=== PATIENT | male | born 1955 | race Caucasian/White ===

== ENCOUNTER 2017-05-04 11:00 | Outpatient (RCR) | payer MEDICAID, SELFPAY ==
--- NOTE | 2017-03-31 14:14 | HP.PTEVAL_ITS ---
Patient's Visit Information LATOSHA FOLEY is a 62 year old M referred to Physical Therapy by Tejas WAGNER with a diagnosis of BACK AND LEG PAIN. Date of Evaluation: 03/31/17 Physical Therapist: Chester Adams PT, - Visit Plan Frequency: 2x /Week Duration: 4 Weeks Plan: lumbar flexion,DLS,modalities - Subjective Subjective: This 62 y/o male presents to physical therapy with back and leg for many years. Patient has been seeing pain management with one injections .Symptoms worse with standing 30 sec or walk 10feet,unable to do stairs. Symproms bettedr with leaning on cart when shopping and sitting resting. Patient has alot parathesia/tingling in legs. Patient had MRI showed multiple level foraminal/spinal mod to severe stenosis.Coughing/sneezing -.Bowel/bladder good. Pain affects sleeping. Patient has no tauma. Patient was stone.Patient has seen chiropractor.Patient noticed in past weakness in ankle. SOCAIL: retired. SOCIAL: single - Pain Bilateral Lower Extremity Pain Intensity (Out of 10): 9 Pain Intensity Range: 10 Comment: walking Bilateral Back Pain Intensity (Out of 10): 3 Pain Intensity Range: 10 - Objective POSTURE: mild foward posture ,reduce lordisis. GAIT: mild foward posture unsteady with antalgic gait with pain. NEURO:C/O parathesia/tingling,light touch inact,reflexes 1/3 L3-4,L4-5,L5-S1. FLEXAILITY: hams mod loss. SYMMTRIES : align. MMT: quads 4-/5,hams 4-/5,hip flexion 3+/5,DF 3/5 right,left 3+/5. LUMBAR ROM:flexion min loss,extension sever loss with pain,side glides mod loss pain - Special Tests L/S Slump test left side: Negative L/S Slump test right side: Negative L/S Left Straight Leg Raise: Negative L/S Right Straight Leg Raise: Negative Lumbar Standing: Flexion - Mechanical Response: No effect Lumbar Standing: Flexion - Symptoms During Testing: No effect Lumbar Standing: Flexion - Symptoms After Testing: No effect Lumbar Standing: Extension - Mechanical Response: No effect Lumbar Standing: Extension - Symptoms During Testing: Increases Lumbar Standing: Extension - Symptoms After Testing: No worse Lumbar Standing: Right Side Glides - Mechanical Response: No effect Lumbar Standing: Right Side [place] - Symptoms During Testing: Increases Lumbar Standing: Right Side [place] - Symptoms After Testing: No worse Lumbar Standing: Left Side [place] - Mechanical Response: No effect Lumbar Standing: Left Side [place] - Symptoms During Testing: Increases Lumbar Standing: Left Side [place] - Symptoms After Testing: No worse Lumbar Lying: Flexion - Mechanical Response: No effect Lumbar Lying: Flexion - Symptoms During Testing: Decreases Lumbar Lying: Flexion - Symptoms After Testing: Better Comments:: unloaded - Goals Goal 1:: Independant with HEP Goal Time Frame: 2-4 Weeks Goal 2:: Independant with posture for ADL'S Goal Time Frame: 2-4 Weeks Goal 3:: Decrease lumbar and leg pain by 40% or greater to improve function Goal Time Frame: 2-4 Weeks Goal 4:: Patient to to increase BLE strength by 1/2 grade to improve walking and standing 5min Goal Time Frame: 4-6 Weeks Goal 5:: Patient be able to satnd or walk 5min to improve ADL'S and housework tasks Goal Time Frame: 2-4 Weeks - Rehabilitation Potential Physical Therapy Diagnosis: This patient has severe/mod lumbar stenosis / foraminal which afects any walking or standing. better with sitting thus benifit from skilled PT Rehabilitation Potential: Good - Anticipated Interventions Patient/Client Instruction: Educate patient on: Condition, Plan of Care For the Purpose of:: To decrease pain, To increase ROM, To improve muscle performance and motor function, To increase tolerance to activity/condition/ position, To improve ability of physical actions for home/community/work/leisure , To improve gait and locomotor functions, To increase flexibility/ROM, To improve safety with gait, To assume or resume ADL's, To improve ability to perform tasks related to life management Therapeutic Exercise to Include: Strength training, Body mechanics, Postural training, Flexibilty training, Dynamic Lumbar Stabilization Comment: LUMBAR FLEXION For the Purpose of:: To decrease pain, To improve muscle performance and motor function, To improve ability to perform ADL's, To increase tolerance to activity /condition/position, To improve ability of physical actions for home/community/ work/leisure, To improve health of tissue, To decrease soft tissue restriction, To improve endurance, To improve safety with gait, To improve ability to perform tasks related to life management TENS: Yes IF ES: Yes Cryotherapy (ice pack, ice massage): Yes Thermo therapy (hot pack): Yes Ultrasound (thermal/non thermal): Yes For the Purpose of:: To decrease pain, To increase ROM, To improve nutrient delivery to tissue, To increase oxygenation perfusion, To improve health of tissue, To decrease soft tissue restriction Thank you for the opportunity to evaluate your patient. For Medicare and Medicare HMO plans, please review the plan of care and approve it. It will need to be FAXED BACK to us at [phone] for Medicare purposes. Please let me know if there are questions or concerns regarding this plan of care. Physician Signature: Date:
--- NOTE | 2017-05-04 14:52 | HP.PTDCSUM_ITS ---
HP - PT D/C Summary It has been my pleasure to treat LATOSHA FOLEY under orders from DR.ABASAL Sandra for the diagnosis of BACK AND LEG PAIN for a total of 8 visit(s). Discharge Date: 05/04/17 Please see the following information for a summary of their discharge status. - Subjective Subjective: Doing the same ..unable to walk 100 yards or stand for couple of minutes pain and weakness. Patient reprts falling this weekend. Plan to see DR CUEVAS next month. 8/10 pain with walking - Pain Bilateral Lower Extremity Pain Intensity (Out of 10): 7 Bilateral Back Pain Intensity (Out of 10): 8 - Overall Improvement % Improvement: 10 - Objective Objective/Function: POSTURE: decrease lordosis lumbat. GAIT: unsteady gait due to weakness in legs. NEURO: reflexes 1/3 ,achilles and patella. MMT: quads 4-/ 5,hip flexion R 3/5,left 3+/5. hams 4-5,ankle R 3/5 ,L 3+/5 - Goals Goal 1:: Independant with HEP Goal Progress: Progressing Goal 2:: Independant with posture for ADL'S Goal Progress: Progressing Goal 3:: Decrease lumbar and leg pain by 40% or greater to improve function Goal Progress: Not Progressing Goal 4:: Patient to to increase BLE strength by 1/2 grade to improve walking and standing 5min Goal Progress: Not Progressing Goal 5:: Patient be able to satnd or walk 5min to improve ADL'S and housework tasks Goal Progress: Not Progressing - Plan Plan: D/C RECOMMEND LUMABR SPECIALIST CONSULT - D/C Information Discharge Comments: D/C TO PAIN MANAGEMENT If there are questions or concerns regarding this patient's physical therapy, please feel free to call me at [phone]. Thank you for the referral of this patient. Sincerely, Chester Adams, PT,
== END 2017-05-04 19:00 | disposition home or self-care (01) ==
LOC: PT 11:00
PROVIDERS: Family Provider Family Medicine; PCP Family Medicine; Visit Provider Anesthesiology Pain Medicine
DX: M54.9 Dorsalgia, unspecified (principal); M79.606 Pain in leg, unspecified
CPT/HCPCS: 97014; 97035; 97110; 97162; G0283

== ENCOUNTER → 2017-11-23 09:41 | Outpatient (CLI) | payer MEDICAID, SELFPAY ==
[2017-11-23 12:32] LABS: Absolute Lymphocyte Count 1.75 X10^3/ul (0.83-4.51); Basophil# 0.09 X10^3/uL; Basophil% 0.8 % (0-1); Eosinophil# 0.42 X10^3/uL; Eosinophils% 3.9 % (0-5); Hematocrit 46.1 % (40-54); Hemoglobin 15.7 g/dl (13.0-16.5); Lymphocyte # 1.75 X10^3/ul (4.0); Lymphocyte % 16.3 % (19-41); Mean Corp Hgb Conc 34.1 g/gl (32-36); Mean Corpuscular Hgb 30.7 pg (27.0-32.0); Mean Platelet Vol. 11.8 fl (6.2-12.0); Monocyte# 1.36 X10^3/uL; Monocyte% 12.7 % (0-10); Neutrophil # 7.02 X10^3/uL (2.7-7.7); Neutrophil % 65.6 % (47-70); Platelet Count 349 K/mm3 (150-450); RBC Distribution Width SD 42.5 fl (35.1-43.9); Red Blood Count 5.12 M/mm3 (4.6-6.2); White Blood Count 10.7 K/mm3 (4.4-11.0)
[2017-11-23 12:42] LABS: ALB/GLOB Ratio 1.1 RATIO (0.9-2.4); AST(SGOT) 31 U/L (15-37); Alanine Aminotransfer ALT/SGPT 63 U/L (16-61); Albumin, Serum 4.2 g/dL (3.2-5.0); Alkaline Phosphatase 95 U/L (45-117); Anion Gap 14 (5-15); BUN 21 mg/dL (7-18); BUN/Creat Ratio 20.6 RATIO (10-20); Calcium,Total 9.3 mg/dL (8.5-10.1); Chloride 99 mmol/L (98-107); Cholesterol 207 mg/dL (200); Creatinine, Serum 1.02 mg/dL (0.70-1.30); EST Glomerular Filtration Rate 79 mL/min (>60); Est Glom Filt Rate - Afr Amer 95 mL/min (>60); Globulin 3.9 g/dL (2.2-4.2); Glucose 130 mg/dL (74-106); High Density Lipoprotein 55 mg/dL; Potassium 3.6 mmol/L (3.5-5.1); Protein, Total 8.1 g/dL (6.4-8.2); Sodium Level 140 mmol/L (136-145); Triglycerides 212 mg/dL; Very Low Density Lipoprotein 42 mg/dL (5-40)
[2017-11-23 12:52] LABS: Hemoglobin A1c 6.2 % (4.2-6.3); POSITIVE COUNT NO; POSITIVE DIFFERENTIAL NO; POSITIVE MORPHOLOGY NO
[2017-11-23 12:55] LABS: Microalbumin,Random Urine 24.5 mg/L (NO RANGE EST.); Microalbumin:Creatinine Ratio 11.8 mg/g CRE (<30 mg/g CRE)
[2017-11-26 12:09] LABS: Testosterone, Free 14.45 ng/dL (5.00-21.00)
[2017-11-27 08:49] LABS: Testosterone, % Free 2.42 % (1.50-4.20); Testosterone, Total 597 ng/dL (264-916)
== END ==
PROVIDERS: Family Provider Family Medicine; PCP Family Medicine; Visit Provider Family Medicine
DX: E11.9 Type 2 diabetes mellitus without complications (principal); I10 Essential (primary) hypertension; R53.83 Other fatigue
CPT/HCPCS: 36415; 80053; 80061; 82043; 82570; 83036; 84402; 84403; 85025

== ENCOUNTER → 2018-06-11 08:19 | Outpatient (CLI) | payer MEDICAID, SELFPAY ==
[2018-06-11 12:45] LABS: Cholesterol 206 mg/dL (200); Hemoglobin A1c 6.5 % (4.2-6.3); High Density Lipoprotein 42 mg/dL; Triglycerides 281 mg/dL; Very Low Density Lipoprotein 56 mg/dL (5-40)
== END ==
PROVIDERS: Family Provider Family Medicine; PCP Family Medicine; Visit Provider Family Medicine
DX: E11.9 Type 2 diabetes mellitus without complications (principal); I10 Essential (primary) hypertension
CPT/HCPCS: 36415; 80061; 83036

== ENCOUNTER → 2018-12-22 08:21 | Outpatient (CLI) | payer MEDICAID, SELFPAY ==
[2018-12-04 10:26] VITALS: BMI 28.7
[2018-12-22 12:33] LABS: Absolute Lymphocyte Count 2.03 X10^3/uL (0.83-4.51); Absolute Neutrophil Count 6.1 X10^3/uL (2.0-7.7); Basophil# 0.07 X10^3/uL; Basophil% 0.7 % (0-1); Eosinophil# 0.33 X10^3/uL; Eosinophils% 3.5 % (0-5); Hematocrit 48.1 % (40-54); Hemoglobin 15.7 g/dL (13.0-16.5); Lymphocyte # 2.03 X10^3/ul (4.0); Lymphocyte % 21.3 % (19-41); Mean Corp Hgb Conc 32.6 g/dL (32-36); Mean Corpuscular Hgb 30.1 pg (27.0-32.0); Mean Corpuscular Volume 92.3 fL (80-94); Mean Platelet Vol. 11.3 fl (6.2-12.0); Monocyte# 0.96 X10^3/uL; Monocyte% 10.1 % (0-10); NRBC Flagged by Analyzer 0 % (0-5); Neutrophil # 6.08 X10^3/uL (2.7-7.7); Neutrophil % 63.9 % (47-70); Platelet Count 352 K/mm3 (150-450); RBC Distribution Width CV 12.5 % (11.6-14.6); RBC Distribution Width SD 42.8 fl (35.1-43.9); Red Blood Count 5.21 M/mm3 (4.6-6.2); White Blood Count 9.5 K/mm3 (4.4-11.0)
[2018-12-22 12:49] LABS: Microalbumin,Random Urine 51.4 mg/L (NO RANGE EST.); Microalbumin:Creatinine Ratio 22.4 mg/g CRE (<30 mg/g CRE)
[2018-12-22 12:56] LABS: ALB/GLOB Ratio 1.1 RATIO (0.9-2.4); AST(SGOT) 24 U/L (15-37); Alanine Aminotransfer ALT/SGPT 50 U/L (16-61); Alkaline Phosphatase 134 U/L (45-117); Anion Gap 5 (5-15); BUN 13 mg/dL (7-18); Calcium,Total 9.3 mg/dL (8.5-10.1); Chloride 100 mmol/L (98-107); Cholesterol 188 mg/dL (200); Creatinine, Serum 1.08 mg/dL (0.70-1.30); EST Glomerular Filtration Rate 73 mL/min (>60); Est Glom Filt Rate - Afr Amer 89 mL/min (>60); Globulin 3.7 g/dL (2.2-4.2); Glucose 96 mg/dL (74-106); High Density Lipoprotein 40 mg/dL; Potassium 3.7 mmol/L (3.5-5.1); Protein, Total 7.7 g/dL (6.4-8.2); Sodium Level 136 mmol/L (136-145); Triglycerides 208 mg/dL; Very Low Density Lipoprotein 42 mg/dL (5-40)
[2018-12-22 12:59] LABS: Hemoglobin A1c 6.6 % (4.2-6.3)
== END ==
PROVIDERS: Family Provider Family Medicine; PCP Family Medicine; Visit Provider Family Medicine
DX: E11.9 Type 2 diabetes mellitus without complications (principal); I10 Essential (primary) hypertension; E78.1 Pure hyperglyceridemia
CPT/HCPCS: 36415; 80053; 80061; 82043; 82570; 83036; 85025

== ENCOUNTER → 2019-01-31 08:06 | Outpatient (CLI) | payer MEDICAID, SELFPAY ==
[2018-12-04 10:26] VITALS: BMI 28.7
[2019-01-25 10:30] VITALS: BMI 28.7
--- NOTE | 2019-01-31 08:30 | RAD_ITS ---
STUDY: X-RAY - ESOPHAGUS (BARIUM SWALLOW) WITH FLUOROSCOPY REASON FOR EXAM: Male, 63 years old. Dysphagia. TECHNIQUE: 12 view(s) of the esophagus were obtained following swallowing of barium. FLUOROSCOPY TIME (if supplied): (0:39) minutes/seconds COMPARISON: None. FINDINGS: There is no demonstrated esophageal foreign body. There is no demonstrated stricture or mucosal abnormality. Normal gastroesophageal junction, without a demonstrated hiatal hernia. The patient ingested a 12 mm tablet of barium without any difficulty. Normal visualized aortic arch and descending thoracic aorta. Normal visualized pulmonary parenchyma. Normal visualized osseous structures of the thorax. RAD/Esophagus Only IMPRESSION: Normal plain film x-ray examination (barium swallow) of the esophagus. Electronically Signed: Soy Esquivel, at 9:14 EST , Service support ,
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
== END ==
PROVIDERS: Family Provider Family Medicine; PCP Family Medicine; Referring Provider Otolaryngology; Visit Provider Otolaryngology
DX: R13.10 Dysphagia, unspecified (principal)
CPT/HCPCS: 73130; 74220

== ENCOUNTER → 2019-08-03 08:21 | Outpatient (CLI) | payer MEDICAID, SELFPAY ==
[2019-01-25 10:30] VITALS: BMI 28.7
[2019-08-03 12:33] LABS: Absolute Lymphocyte Count 2.13 X10^3/uL (0.83-4.51); Absolute Neutrophil Count 3.7 X10^3/uL (2.0-7.7); Basophil# 0.06 X10^3/uL; Basophil% 0.8 % (0-1); Eosinophil# 0.39 X10^3/uL; Eosinophils% 5.4 % (0-5); Hematocrit 44.9 % (40-54); Hemoglobin 14.9 g/dL (13.0-16.5); Lymphocyte # 2.13 X10^3/ul (4.0); Lymphocyte % 29.7 % (19-41); Mean Corp Hgb Conc 33.2 g/dL (32-36); Mean Corpuscular Hgb 30.5 pg (27.0-32.0); Mean Platelet Vol. 11.8 fl (6.2-12.0); Monocyte# 0.87 X10^3/uL; Monocyte% 12.1 % (0-10); NRBC Flagged by Analyzer 0 % (0-5); Neutrophil # 3.69 X10^3/uL (2.7-7.7); Neutrophil % 51.6 % (47-70); Platelet Count 358 K/mm3 (150-450); RBC Distribution Width CV 12.4 % (11.6-14.6); RBC Distribution Width SD 41.9 fl (35.1-43.9); Red Blood Count 4.88 M/mm3 (4.6-6.2); White Blood Count 7.2 K/mm3 (4.4-11.0)
[2019-08-03 12:47] LABS: AST(SGOT) 42 U/L (15-37); Alanine Aminotransfer ALT/SGPT 57 U/L (16-61); Albumin, Serum 3.6 g/dL (3.2-5.0); Alkaline Phosphatase 94 U/L (45-117); Anion Gap 7 (5-15); BUN 21 mg/dL (7-18); BUN/Creat Ratio 18.9 RATIO (10-20); Calcium,Total 9.2 mg/dL (8.5-10.1); Chloride 103 mmol/L (98-107); Cholesterol 173 mg/dL (200); Creatinine, Serum 1.11 mg/dL (0.70-1.30); EST Glomerular Filtration Rate 71 mL/min (>60); Est Glom Filt Rate - Afr Amer 86 mL/min (>60); Globulin 3.5 g/dL (2.2-4.2); Glucose 92 mg/dL (74-106); High Density Lipoprotein 40 mg/dL; Potassium 3.5 mmol/L (3.5-5.1); Protein, Total 7.1 g/dL (6.4-8.2); Sodium Level 139 mmol/L (136-145); Triglycerides 144 mg/dL; Very Low Density Lipoprotein 29 mg/dL (5-40)
[2019-08-03 12:54] LABS: Hemoglobin A1c 6.4 % (3.8-5.6)
== END ==
PROVIDERS: PCP Family Medicine; Visit Provider Family Medicine
DX: E11.9 Type 2 diabetes mellitus without complications (principal); I10 Essential (primary) hypertension; E78.1 Pure hyperglyceridemia; R53.83 Other fatigue
CPT/HCPCS: 36415; 80053; 80061; 83036; 85025

== ENCOUNTER → 2020-01-05 09:30 | Outpatient (CLI) | payer MEDICAID, SELFPAY ==
[2019-01-25 10:30] VITALS: BMI 28.7
[2019-09-20 10:18] VITALS: BMI 28.7
[2020-01-05 12:38] LABS: Hemoglobin A1c 6.4 % (3.8-5.6)
[2020-01-05 12:49] LABS: Cholesterol 181 mg/dL (200); High Density Lipoprotein 48 mg/dL; Triglycerides 182 mg/dL; Very Low Density Lipoprotein 36 mg/dL (5-40)
== END ==
PROVIDERS: PCP Family Medicine; Visit Provider Family Medicine
DX: E11.9 Type 2 diabetes mellitus without complications (principal); I10 Essential (primary) hypertension; E78.1 Pure hyperglyceridemia
CPT/HCPCS: 36415; 80061; 83036

== ENCOUNTER → 2020-08-02 10:54 | Outpatient (CLI) | payer MEDICARE, MEDICAID, SELFPAY ==
[2020-08-02 10:06] LABS: Absolute Lymphocyte Count 2.15 X10^3/uL (0.83-4.51); Basophil# 0.09 X10^3/uL; Basophil% 0.8 % (0-1); Eosinophil# 0.29 X10^3/uL; Eosinophils% 2.7 % (0-5); Hematocrit 47.2 % (40-54); Hemoglobin 15.7 g/dL (13.0-16.5); Lymphocyte # 2.15 X10^3/ul (0.83-4.51); Mean Corp Hgb Conc 33.3 g/dL (32-36); Mean Corpuscular Hgb 30.4 pg (27.0-32.0); Mean Corpuscular Volume 91.3 fL (80-94); Mean Platelet Vol. 11.2 fl (6.2-12.0); Monocyte# 1.12 X10^3/uL; Monocyte% 10.4 % (0-10); NRBC Flagged by Analyzer 0 % (0-5); Neutrophil # 7.02 X10^3/uL (2.7-7.7); Neutrophil % 65.4 % (47-70); Platelet Count 368 K/mm3 (150-450); RBC Distribution Width CV 12.9 % (11.6-14.6); RBC Distribution Width SD 43.6 fl (35.1-43.9); Red Blood Count 5.17 M/mm3 (4.6-6.2); White Blood Count 10.7 K/mm3 (4.4-11.0)
[2020-08-02 10:38] LABS: Cholesterol 198 mg/dL (200); High Density Lipoprotein 49 mg/dL; Triglycerides 198 mg/dL; Very Low Density Lipoprotein 40 mg/dL (5-40)
[2020-08-02 10:41] LABS: Vitamin B12 519 pg/mL (211-911)
[2020-08-02 10:54] LABS: Hemoglobin A1c 6.7 % (3.8-5.6)
--- NOTE | 2020-08-02 10:59 | ART_ITS ---
Reason For Study: PVD Procedure A bilateral lower extremity continuous wave Doppler with analog waveform analysis,segmental pressures,and ankle brachial indexes without exercise. Left Segmental Pressures Left brachial= 161mmHg. Left dorsalis pedis artery = 207mmHg. Left digit = 177 mmHg. The left dorsalis pedis waveforms are triphasic. The left posterior tibial artery waveforms are triphasic. [employer] is noncompressible. Right Segmental Pressures Right brachial= 153mmHg. Right posterior tibial artery = 210mmHg. Right dorsalis pedis artery = 188mmHg. Right digit = 123 mmHg. The right dorsalis pedis waveforms are triphasic. The right posterior tibial artery waveforms are triphasic. Indices The right ankle brachial index by the dorsalis pedis is 1.17. The right ankle brachial index by the posterior tibial artery is 1.3. The right digital-brachial index is .76. The left ankle brachial index by the dorsalis pedis is 1.29. The left digital-brachial index is 1.1. [employer] is noncompressible. VL/Lower Ext Art Exam w/o Exercis Interpretation Summary Triphasic Doppler waveforms are noted at ankle level bilaterally. Pulse-volume recordings appear satisfactory at all levels bilaterally. Resting ankle-brachial indices are norm al bilaterally. Digital-brachial indices are normal bilaterally. There is no evidence of significant arterial occlusive disease in the lower ext remities bilaterally. Ordering Physician: Ezio Gallegos Performed By: TORIN EVANS RVT
[2020-08-02 11:07] LABS: ALB/GLOB Ratio 1.1 RATIO (0.9-2.4); AST(SGOT) 29 U/L (15-37); Alanine Aminotransfer ALT/SGPT 48 U/L (16-61); Alkaline Phosphatase 109 U/L (45-117); Anion Gap 6 (5-15); BUN 19 mg/dL (7-18); BUN/Creat Ratio 17.4 RATIO (10-20); Calcium,Total 9.3 mg/dL (8.5-10.1); Chloride 100 mmol/L (98-107); Creatinine, Serum 1.09 mg/dL (0.70-1.30); EST Glomerular Filtration Rate 72 mL/min (>60); Est Glom Filt Rate - Afr Amer 87 mL/min (>60); Estradiol 40.4 pg/mL; Free T3 3.1 pg/mL (2.18-3.98); Globulin 3.6 g/dL (2.2-4.2); Glucose 117 mg/dL (74-106); Potassium 3.5 mmol/L (3.5-5.1); Protein, Total 7.6 g/dL (6.4-8.2); Sodium Level 136 mmol/L (136-145); T4 Free Direct 1.11 ng/dL (0.76-1.46); Thyroid Stim Hormone (TSH) 1.73 uIU/mL (0.358-3.74)
[2020-08-05 20:07] LABS: Testosterone, % Free 2.53 % (1.50-4.20); Testosterone, Free 11.46 ng/dL (5.00-21.00)
[2020-08-06 07:39] LABS: Testosterone, Total 453 ng/dL (264-916); Thyroid Peroxidase AB < 9 IU/mL (0-34)
== END ==
PROVIDERS: Nurse Practitioner Family; PCP Family Medicine; Referring Provider Podiatrist; Visit Provider Podiatrist
DX: I73.9 Peripheral vascular disease, unspecified (principal); E11.9 Type 2 diabetes mellitus without complications; Z12.5 Encounter for screening for malignant neoplasm of prostate; M17.0 Bilateral primary osteoarthritis of knee; I10 Essential (primary) hypertension; E78.1 Pure hyperglyceridemia; Z79.890 Hormone replacement therapy
CPT/HCPCS: 36415; 80053; 80061; 82306; 82607; 82670; 83036; 84153; 84402; 84403; 84439; 84443; 84481; 85025; 86376; 93923; G0103

== ENCOUNTER → 2020-08-11 07:50 | Outpatient (CLI) | payer MEDICARE, MEDICAID, SELFPAY ==
[2020-08-03 09:33] VITALS: BMI 28.7
--- NOTE | 2020-08-11 08:19 | MRI_ITS ---
STUDY: MRI LEFT FOREFOOT WITHOUT CONTRAST REASON FOR EXAM: Male, 65 years old. CAPSULITIS L FOREFOOT, pain and swelling TECHNIQUE: Standardized fat and water weighted pulse sequences were obtained in all 3 orthogonal planes. COMPARISON: None. FINDINGS: There is degenerative arthrosis with a joint of effusion of the metatarsophalangeal joint of the hallux with capsular distension. Normal tibial and fibular sesamoids, with normal sesamoids-first metatarsal articulations. Normal interphalangeal joint of the hallux. Normal proximal and distal phalanges of the great toe. Normal medial and lateral heads of the flexor hallucis brevis tendons. Normal flexor and extensor hallucis longus tendons. Normal second through fifth metatarsophalangeal (MTP) joints. Normal interphalangeal joints of the second through fifth toes. Normal proximal, middle and distal phalanges of the second through fifth toes. Normal first through fourth intermetatarsal spaces. Normal flexor and extensor tendons of the second through fifth toes. Normal visualized metatarsi. There is diffuse atrophy and edema of the intrinsic muscles of the forefoot consisten twith a peripheral neuropathy. There is no demonstrated soft tissue abnormality. 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 Electronically Signed: Oni Altamirano MD at 11:25 EDT Tel , Service support ,
--- NOTE | 2020-08-11 08:19 | MRI_ITS ---
STUDY: MRI RIGHT FOREFOOT WITHOUT CONTRAST REASON FOR EXAM: Male, 65 years old. CAPSULITIS FOREFOOT R, pain swelling TECHNIQUE: Standardized fat and water weighted pulse sequences were obtained in all 3 orthogonal planes. COMPARISON: None. FINDINGS: There is degenerative arthrosis of the metatarsophalangel joint of the hallux. Normal tibial and fibular sesamoids, with normal sesamoids-first metatarsal articulations. Normal interphalangeal joint of the hallux. Normal proximal and distal phalanges of the great toe. Normal medial and lateral heads of the flexor hallucis brevis tendons. Normal flexor and extensor hallucis longus tendons. Normal second through fifth metatarsophalangeal (MTP) joints. Normal interphalangeal joints of the second through fifth toes. Normal proximal, middle and distal phalanges of the second through fifth toes. Normal first through fourth intermetatarsal spaces. Normal flexor and extensor tendons of the second through fifth toes. Normal visualized metatarsi. There is diffuse atrophy and edema of the intrinsic muscles of the forefoot consisten twith a peripheral neuropathy. Mild dorsal soft tissue swelling. 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 Electronically Signed: Oni Altamirano MD at 11:28 EDT Tel , Service support ,
== END ==
PROVIDERS: PCP Family Medicine; Referring Provider Podiatrist; Visit Provider Podiatrist
DX: M19.072 Primary osteoarthritis, left ankle and foot (principal); M77.9 Enthesopathy, unspecified
CPT/HCPCS: 73718

== ENCOUNTER 2020-09-21 07:27 | Day surgery (SDC) | payer MEDICARE, SELFPAY ==
[2020-08-03 09:33] VITALS: BMI 28.7
[2020-09-21] VITALS (8 sets, daily range): BP systolic 103–170; BP diastolic 62–70; PULSE 75–91; RESP 16; TEMP 36.7–36.9; O2SAT 95–98; BMI 29.8
[2020-09-21] MEDS: Lactated Ringers 1,000 ML 100 ML IV (07:45)
--- NOTE | 2020-09-21 08:14 | H&P.OPEN ---
HPI - General [facility] Narrative LATOSHA FOLEY, is a 65 M who presents for screening colonoscopy. The patient had his last colonoscopy 10 years ago and was normal. The patient does have a family history of colon cancer in his mother at age 70. Patient is not having any abdominal pain or blood in his stool. [facility] Medical History (Updated 09/21/20 @ 08:[address] Jose Bello MD) Ambulates with cane Back pain Cancer Diabetes Diabetes type 2, controlled Diarrhea Difficulty balancing Gastric reflux Heartburn Hypertension Limb weakness Neck pain Shortness of breath on exertion Home Medications hydrochlorothiazide 25 mg tablet 25 mg PO DAILY 30 Days #30 05/25/17 [History Last Taken Unknown] insulin syringe-needle U-100 0.5 mL 31 gauge x 07/29 #50 ea 01/25/19 [History Last Taken Unknown] famotidine 20 mg tablet 20 mg PO DAILY 09/20/19 [History Last Taken Unknown] acetaminophen 325 mg capsule 325 mg PO ONCE PRN 01/19/20 [History Last Taken Unknown] bupropion HCl 150 mg tablet,12 hr sustained-release 150 mg PO DAILY 01/19/20 [History Last Taken Unknown] meloxicam 15 mg tablet 15 mg PO DAILY 01/19/20 [History Last Taken Unknown] metoprolol succinate 50 mg tablet,extended release 24 hr 50 mg PO DAILY #30 tab 01/19/20 [History Last Taken Unknown] fluticasone propionate 50 mcg/actuation nasal spray,suspension 1 spray INTRANASAL DAILY 08/03/20 [History Last Taken Unknown] insulin NPH isoph U-100 human [Humulin N Pen] 100 unit SUBCUT DAILY 09/19/20 [History Last Taken Unknown] loratadine [Claritin] 10 mg PO DAILY 09/19/20 [History Last Taken Unknown] Allergy/AdvReac Type Severity Reaction Status Date / Time metformin Allergy Unknown Verified 08/03/20 09:38 Family History (Updated 04/28/17 @ 09:37 by Vesta Lopez) Mother Colon cancer Father Heart disease Surgical History (Updated 05/25/17 @ 09:05 by Dianna Maddox) History of cataract surgery History of hernia repair History of sinus surgery Social History (Updated 01/20/20 @ 14:43 by Samuel GEORGE, PA) Smoking Status: Never smoker alcohol intake: never Past Medical/Surgical History Planned Operation Planned Operative Procedure/s: COLONOSCOPY Previous Hospitalizations/Surgeries HX Hospitalizations: No Any Problems With Anesthesia: No You/Your Family Experience Fever (Hyperthermia) With Anes: No Cholinesterase deficiency: No Cardiovascular Hx Chest Pain within Last 2 months: No Hx Heart Attack: No Hx Hypertension: Yes Hx Cardiac Surgery/Stents/Etc.: No Respiratory Hx Chronic Obstructive Pulmonary Disease (COPD): No Hx Sleep Apnea: No Hx Respiratory Tract Infection/Cold (presently): No Do You Snore Loudly (louder than talking or can be heard): No Do You Often Feel Tired/ Fatigued/ Sleepy Dring Daytime?: No Has Anyone Observed You Stop Breathing During Sleep?: No Result (for STOP score): Negative Hx Smoking: No Smoking Status: Never smoker Neurological Hx Seizures: No Hx Multiple Sclerosis: No Hx Parkinson's Disease: No Does patient have nerve stimulator: No Blood Disorder Hx Anemia: No Genitourinary Hx Dialysis: No Musculoskeletal Hx Arthritis: Yes Hx Rheumatoid Arthritis: No Endocrine Hx Diabetes: Yes Thyroid Disease: No Psycho/Social Hx Depression: No Hx Dementia: No Miscellaneous Hx Cancer: No Recent Exposure to Contagious Disease: No Allergies metformin Allergy (Verified 08/03/20 09:38) Unknown Discharge Is Pt Admitted From a Fdc, or a Nursing Home: Yes Who Could Help: [facility] After D/C, Where Do you Plan to Go: Return Home From the [facility] History Number of Risk Factors: 2 Vital Signs Vital Signs Vital Signs: 09/21/20 08:00 Temperature 98.1 F Temperature Source Temporal Pulse Rate 91 Respiratory Rate 16 Respiratory Pattern Normal Blood Pressure 170/62 H Blood Pressure Mean 98 Blood Pressure Source Monitor Blood Pressure Position Semi-Fowlers Blood Pressure Location Left Arm Pulse Ox 98 Oxygen Delivery Method Room Air Weight Weight: 225 lb 15.581 oz Body Mass Index (BMI) 29.8 Physical Exam Const alert and oriented x3 Resp normal respiratory effort and normal air movement Cardio regular rate and regular rhythm GI soft to palpation, non-tender and non-distended Assessment & Plan Assessment/Plan (1) Screen for colon cancer: PLAN: Patient here for screening colonoscopy. I explained endoscopy in detail to the patient. I explained the risks including but not limited to stroke or heart attack with anesthesia, perforation of the GI tract, bleeding, infection. I explained that any of these could necessitate further emergency surgery. The patient understands and all questions were answered sufficiently. The patient wishes to proceed with procedure. Jose Bello MD Pager: [facility] [address] [place] [address] [address] [place] [address] Office: Surgery Risks - Colonoscopy Risks Include but are not Limited To: Risks include but are not limited to: Bleeding, perforation requiring further surgery, inability to complete colonoscopy requiring barium enema.
--- NOTE | 2020-09-21 08:45 | OP.COLON_ITS ---
Patient Name: Jose Alfredo Coon Procedure Date: 09/21/2020 8:25 AM Date of : 1955 Age: 65 Procedure: Colonoscopy Indications: Screening for colorectal malignant neoplasm Providers: Jose Bello MD Medicines: Monitored Anesthesia Care Patient Profile: This is a 65 year old male. Refer to note in patient chart for documentation of history and physical. Last Colonoscopy: 10 years ago. Complications: No immediate complications. Procedure: Pre-Anesthesia Assessment: - Prior to the procedure, a History and Physical was performed, and patient medications and allergies were reviewed. The patient's tolerance of previous anesthesia was also reviewed. The risks and benefits of the procedure and the sedation options and risks were discussed with the patient. All questions were answered, and informed consent was obtained. Prior Anticoagulants: The patient has taken no previous anticoagulant or antiplatelet agents. After reviewing the risks and benefits, the patient was deemed in satisfactory condition to undergo the procedure. After I obtained informed consent, the scope was passed under direct vision. Throughout the procedure, the patient's blood pressure, pulse, and oxygen saturations were monitored continuously. The pediatric colonoscope was introduced through the anus and advanced to the cecum, identified by appendiceal orifice and ileocecal valve. The colonoscopy was performed without difficulty. The patient tolerated the procedure well. The quality of the bowel preparation was good. Scope In: 8:32:21 AM Scope Withdrawal Time 0 hours 5 minutes 40 seconds Scope Out: 8:42:00 AM Total Procedure Duration Time 0 hours 9 minutes 39 seconds Findings: The entire examined colon appeared normal on direct and retroflexion views. Impression: - The entire examined colon is normal on direct and retroflexion views. - No specimens collected. Recommendation: - Discharge patient to home. - Resume previous diet. - Continue present medications. - Repeat colonoscopy in 10 years for screening purposes. Procedure Code(s): --- Professional --- G0121, Colorectal cancer screening; colonoscopy on individual not meeting criteria for high risk Diagnosis Code(s): --- Professional --- Z12.11, Encounter for screening for malignant neoplasm of colon CPT copyright 2017 [employer]. All rights reserved. The codes documented in this report are preliminary and upon marine reporter review may be revised to meet current compliance requirements. Jose Bello MD 09/21/2020 8:45:08 AM This report has been signed electronically. Number of Addenda: 0 Note Initiated On: 09/21/2020 8:25 AM
[2020-09-21 08:46] LABS: Bedside Glucose 120 mg/dL (70-110)
--- NOTE | 2020-09-21 08:46 | OP.CCLET_ITS ---
09/21/2020 Silvano Madden [address] [place] [address] Re : Colonoscopy procedure for Jose Alfredo Coon Dear Dr. Madden This procedure was performed on Monday, September 21, 2020. My impressions and recommendations are as follows: Impressions : - The entire examined colon is normal on direct and retroflexion views. - No specimens collected. Recommendations : - Discharge patient to home. - Resume previous diet. - Continue present medications. - Repeat colonoscopy in 10 years for screening purposes. My findings are described in the full procedure note, which is enclosed. If I can be of further assistance, please feel free to contact me at Doctor phone number(s): , Work: . Sincerely, Jose Bello MD 09/21/2020 8:45:08 AM This report has been signed electronically.
== END 2020-09-21 09:45 ==
LOC: EN 07:31 → AC 07:32
PROVIDERS: PCP Family Medicine; Referring Provider Family Medicine; Visit Provider Surgery
PROC: 0DJD8ZZ Inspection of Lower Intestinal Tract, Via Natural or Artificial Opening Endoscopic (ICD-10-PCS; CPT 45378; principal; 2020-09-21 08:40)
DX: Z12.11 Encounter for screening for malignant neoplasm of colon (principal); I10 Essential (primary) hypertension; E11.9 Type 2 diabetes mellitus without complications; K21.9 Gastro-esophageal reflux disease without esophagitis; M19.90 Unspecified osteoarthritis, unspecified site; Z85.9 Personal history of malignant neoplasm, unspecified; Z79.899 Other long term (current) drug therapy; Z79.4 Long term (current) use of insulin; Z80.0 Family history of malignant neoplasm of digestive organs; Z79.1 Long term (current) use of non-steroidal anti-inflammatories (NSAID)
CPT/HCPCS: G0121; 82962; J7120; J2405

== ENCOUNTER → 2020-12-13 15:25 | Outpatient (CLI) | payer MEDICARE, MEDICAID, SELFPAY ==
--- NOTE | 2020-12-13 15:28 | RAD_ITS ---
EXAM: XR CHEST, 2 VIEWS CLINICAL INDICATION: ASTHMA TECHNIQUE: Frontal and lateral views of the chest. This report was created using exsulin report generation technology. COMPARISON: None. FINDINGS: LUNGS AND PLEURAL SPACES: Unremarkable. No consolidation or edema. No pneumothorax. No effusion. HEART: Unremarkable. Cardiac silhouette not enlarged. MEDIASTINUM: Central airways and mediastinal contour are unremarkable. BONES/JOINTS: Unremarkable. SOFT TISSUES: Unremarkable. RAD/Chest PA and Lateral IMPRESSION: No radiographic evidence of acute cardiopulmonary disease. Electronically Signed: Elias Taylor MD at 15:45 EDT , Service support ,
== END ==
LOC: RAD.FUTURE 15:27 → RAD 15:27
PROVIDERS: PCP Family Medicine; Referring Provider Family Medicine; Visit Provider Family Medicine
DX: J45.909 Unspecified asthma, uncomplicated (principal)
CPT/HCPCS: 71046

== ENCOUNTER → 2020-12-17 08:24 | Outpatient (CLI) | payer MEDICARE, SELFPAY ==
[2020-12-17 10:33] LABS: AST(SGOT) 25 U/L (15-37); Alanine Aminotransfer ALT/SGPT 36 U/L (16-61); Albumin, Serum 3.5 g/dL (3.2-5.0); Alkaline Phosphatase 85 U/L (45-117); Anion Gap 7 (5-15); BUN 18 mg/dL (7-18); BUN/Creat Ratio 19.1 RATIO (10-20); Calcium,Total 9.2 mg/dL (8.5-10.1); Chloride 100 mmol/L (98-107); Cholesterol 190 mg/dL (200); Creatinine, Serum 0.94 mg/dL (0.70-1.30); EST Glomerular Filtration Rate 85 mL/min (>60); Est Glom Filt Rate - Afr Amer 103 mL/min (>60); Globulin 3.5 g/dL (2.2-4.2); Glucose 92 mg/dL (74-106); High Density Lipoprotein 41 mg/dL; Potassium 3.6 mmol/L (3.5-5.1); Sodium Level 135 mmol/L (136-145); Triglycerides 164 mg/dL; Very Low Density Lipoprotein 33 mg/dL (5-40)
[2020-12-17 10:48] LABS: Microalbumin,Random Urine 32.9 mg/L (NO RANGE EST.); Microalbumin:Creatinine Ratio 11.4 mg/g CRE (<30 mg/g CRE)
== END ==
PROVIDERS: PCP Family Medicine; Referring Provider Family Medicine; Visit Provider Family Medicine
DX: E11.9 Type 2 diabetes mellitus without complications (principal); I10 Essential (primary) hypertension
CPT/HCPCS: 36415; 80053; 80061; 82043; 82570; 83036

== ENCOUNTER 2021-01-15 11:20 | Inpatient (IN) | payer MEDICARE, MEDICAID, SELFPAY ==
[2021-01-15] VITALS (10 sets, daily range): BP systolic 132–145; BP diastolic 80–92; PULSE 51–89; RESP 16–20; TEMP 36.4–37.1; O2SAT 95–100; BMI 29.7; BMI 30.2
--- NOTE | 2021-01-15 11:54 | EKG12_ITS ---
Test Reason : CP Blood Pressure : / mmHG Vent. Rate : 099 BPM Atrial Rate : 099 BPM P-R Int : 150 ms QRS Dur : 114 ms QT Int : 374 ms P-R-T Axes : 047 -34 033 degrees QTc Int : 479 ms Sinus rhythm with frequent Premature ventricular complexes Left axis deviation Incomplete left bundle branch block Nonspecific ST abnormality Abnormal ECG Confirmed by DONA VYAS, LEESA ([id number]), web editor ARMANDO ALMANZA ([id number]) on 01/17/2021 8:46:06 AM Referred By: GIANFRANCO Confirmed By:LEESA CARCAMO MD
--- NOTE | 2021-01-15 11:55 | ED.VIS.CHEST ---
HPI History of Present Illness Chief Complaint: Chest Pain Detail of Chief Complaint: Chest pain and exertional shortness of breath Informant: patient Narrative Narrative: Patient presents with intermittent episodes of exertional dyspnea over the last year. Today patient was trying to clean his gutters and was on his roof for about an hour and became very winded and had to stop frequently. Patient describes some chest tightness. Currently states the chest tightness is resolved with rest. Patient denies recent illness. He denies recent travel or surgery. He has no heart history. Patient states that his father had bypass surgery but was in his 70s or 80s. Patient is a diabetic and has history of high blood pressure. No history of PE or DVT. Patient states that he has had asthma as a child. Prior Similar Symptoms: Yes [facility] Medical History Ambulates with cane Back pain Cancer Diabetes Diabetes type 2, controlled Diarrhea Difficulty balancing Gastric reflux Heartburn Hypertension Limb weakness Neck pain Shortness of breath on exertion Home Medications hydrochlorothiazide 25 mg tablet 25 mg PO DAILY 30 Days #30 05/25/17 [History Last Taken Unknown] insulin syringe-needle U-100 0.5 mL 31 gauge x 07/29 #50 ea 01/25/19 [History Last Taken Unknown] famotidine 20 mg tablet 20 mg PO DAILY 09/20/19 [History Last Taken Unknown] acetaminophen 325 mg capsule 325 mg PO ONCE PRN 01/19/20 [History Last Taken Unknown] bupropion HCl 150 mg tablet,12 hr sustained-release 150 mg PO DAILY 01/19/20 [History Last Taken Unknown] meloxicam 15 mg tablet 15 mg PO DAILY 01/19/20 [History Last Taken Unknown] metoprolol succinate 50 mg tablet,extended release 24 hr 50 mg PO DAILY #30 tab 01/19/20 [History Last Taken Unknown] fluticasone propionate 50 mcg/actuation nasal spray,suspension 1 spray INTRANASAL DAILY 08/03/20 [History Last Taken Unknown] insulin NPH isoph U-100 human [Humulin N Pen] 100 unit SUBCUT DAILY 09/19/20 [History Last Taken Unknown] loratadine [Claritin] 10 mg PO DAILY 09/19/20 [History Last Taken Unknown] omeprazole 20 mg PO DAILY 01/15/21 [History Last Taken Unknown] Allergy/AdvReac Type Severity Reaction Status Date / Time metformin Allergy Unknown Verified 01/15/21 11:23 cephalexin AdvReac Other Verified 01/15/21 11:24 Family History Mother Colon cancer Father Heart disease Surgical History History of cataract surgery History of hernia repair History of sinus surgery Social History Smoking Status: Never smoker alcohol intake: never ROS ROS ED Review of Systems ROS Unobtainable: other Constitutional Constitutional ED: Reports lethargy; Denies chills, fever(s), sweats or weight loss Eyes Eyes: Denies blurry vision, change in vision or diplopia ENT ENT ED: Denies rhinorrhea or sore throat Cardiovascular Cardiovascular: Reports chest pain and racing heartbeat; Denies orthopnea Respiratory/Chest Respiratory/Chest: Reports dyspnea and dyspnea on exertion; Denies cough, orthopnea or sputum Gastrointestinal Gastrointestinal: Denies abdominal pain, diarrhea, nausea or vomiting Genitourinary Genitourinary ED: Denies dysuria, hematuria or urinary frequency Musculoskeletal Musculoskeletal: Denies arthralgias, back pain, myalgias or neck pain Integumentary Denies abscess, Abrasions or rash Neurologic Neurologic: Denies headache(s) or weakness Psychiatric Psychiatric: Denies anxiety, depression or suicidal thoughts Endocrine Endocrinology: Denies polydipsia, polyphagia or polyuria Hematologic/Lymphatic Hematologic/Lymphatic: Denies easy bleeding, easy bruising or lymphadenopathy Allergic/Immunologic Allergic/Immunologic ED: Denies mouth swelling, tongue swelling or urticaria EXAM Physical Exam Const Vital Signs: 01/15/21 11:21 01/15/21 11:30 01/15/21 12:01 Temperature 97.5 F L Temperature Source Temporal Pulse Rate 51 L Respiratory Rate 20 H Respiratory Effort Short of Breath Blood Pressure 144/84 H Blood Pressure Mean 104 Pulse Ox 100 Oxygen Delivery Method Room Air Room Air 01/15/21 12:28 Temperature Temperature Source Pulse Rate 76 Respiratory Rate 16 Respiratory Effort Blood Pressure 134/83 H Blood Pressure Mean 100 Pulse Ox 97 Oxygen Delivery Method Room Air Positive well nourished and well developed General Appearance ED: well developed and NAD HEENT Reports TM's clear and moist mucous membranes normocephalic and atraumatic; Negative for trauma or tenderness Tympanic Membrane ED: Yes TM's clear Eyes PERRL and EOMs intact bilaterally General Eye ED: Negative for pale conjunctiva or scleral icterus Neck no lymphadenopathy, supple and no JVD General: Negative for tenderness Chest Wall inspection of chest normal and palpation of chest normal Chest: Negative for tenderness Resp normal respiratory effort and clear to auscultation bilaterally Effort and Inspection: Negative for respiratory distress or pain with movement Auscultation: Negative for rhonchi, wheezes or diminished lung sounds Cardio regular rate, regular rhythm, S1 normal heart sound, S2 normal heart sound and no murmurs Peripheral Pulses: pulses 2+ throughout GI normal to inspection, nondistended, normoactive bowel sounds, soft to palpation, non-tender, non-distended and no masses Back/Spine no CVA tenderness and no thoracic nor lumbar tenderness Extremity normal to inspection General Extremety ED: Negative for edema General Extremity: Negative for edema Neuro oriented x3, CN's II-XII intact bilaterally, no sensory deficits noted and gait normal Sensorium / Orientation: awake, alert, oriented to person, oriented to place and oriented to time Motor Exam: strength 5/5 throughout and strength abnormal Psych mental status grossly normal Skin no rashes or lesions noted and no wounds Heart Score History: Highly Suspicious ECG: Nonspecific Repolarization Age: >/= 65 years Risk Factors: >/= 3 Risk Factors or History of CAD Troponin: >/=3 x Normal Limit Score: 9 MDM MDM MDM Narrative Medical decision making narrative: IV line established on arrival. Patient was given Plavix 75 mg p.o. as he said he could not tolerate aspirin due to the fact that he is on meloxicam. Patient placed on a safety lead. Patient noted to have an elevated troponin. Case discussed with hospitalist as well as pre school teacher on-call. I suspect his exertional dyspnea is related to acute coronary syndrome. Patient was started on a heparin drip. Lab Data Attestation: I reviewed the patient's lab results. Labs: Laboratory Results - last 24 hr 01/15/21 01/15/21 01/15/21 11:32 11:32 11:32 WBC 15.4 H RBC 5.98 Hgb 17.9 H Hct 52.8 MCV 88.3 MCH 29.9 MCHC 33.9 RDW Std Deviation 43.5 RDW Coeff of Power 13.5 Plt Count 327 MPV 11.2 Immature Gran % (Auto) 2.100 H Neut % (Auto) 77.8 H Lymph % (Auto) 10.1 L [place] % (Auto) 8.2 Eos % (Auto) 1.2 Baso % (Auto) 0.6 Absolute Neuts (auto) 12.0 H Absolute Lymphs (auto) 1.55 Nucleated RBC % 0 D-Dimer Quant (PE/DVT) 0.53 H* Sodium 130 L Potassium 4.1 Chloride 95 L Carbon Dioxide 29.0 Anion Gap 6 BUN 35 H Creatinine 1.46 H Estim Creat Clear Calc 57.01 Est GFR (MDRD) Af Amer 62 Est GFR (MDRD) Non-Af 51 L BUN/Creatinine Ratio 24.0 H Glucose 300 H Calcium 9.3 Troponin I High Sens 594 H* B-Natriuretic Peptide 01/15/21 11:32 WBC RBC Hgb Hct MCV MCH MCHC RDW Std Deviation RDW Coeff of Power Plt Count MPV Immature Gran % (Auto) Neut % (Auto) Lymph % (Auto) [place] % (Auto) Eos % (Auto) Baso % (Auto) Absolute Neuts (auto) Absolute Lymphs (auto) Nucleated RBC % D-Dimer Quant (PE/DVT) Sodium Potassium Chloride Carbon Dioxide Anion Gap BUN Creatinine Estim Creat Clear Calc Est GFR (MDRD) Af Amer Est GFR (MDRD) Non-Af BUN/Creatinine Ratio Glucose Calcium Troponin I High Sens B-Natriuretic Peptide 31.3 Radiography Chest X-Ray - ED: 1 View Diagnostic Testing: Clinical Impression(s) from Imaging Studies Chest X-Ray 01/15/21 12:11 IMPRESSION: No acute abnormality is seen. Electronically Signed: Soy Esquivel MD at 12:31 EDT , Service support , 1 view chest x-ray obtained interpreted by myself as no acute disease process. EKG Initial EKG: Attestation: I personally reviewed and interpreted this EKG as follows: Comments: Sinus rhythm with a ventricular rate of 99 bpm with old septal infarct and occasional PVCs. Prior EKG tracings: available for review Prior: Changed Discharge Plan Triage Chief Complaint: Chest Pain ED Provider: Silvestre Rapp Dx/Rx/DC Orders Clinical Impression: Non-ST elevated myocardial infarction Prescriptions: No Action hydrochlorothiazide 25 mg tablet 25 mg PO DAILY 30 Days Qty: 30 RF: 0 (DME) insulin syringe-needle U-100 0.5 mL 31 gauge x 5/16 syringe See Rx Instructions .ROUTE .MEDSUPPLY Qty: 50 RF: 0 metoprolol succinate 50 mg tablet extended release 24 hr 50 mg PO DAILY Qty: 30 RF: 0 famotidine [Pepcid] 20 mg tablet 20 mg PO DAILY RF: 0 bupropion HCl [Wellbutrin SR] 150 mg tablet sustained-release 12 hr 150 mg PO DAILY RF: 0 meloxicam 15 mg tablet 15 mg PO DAILY RF: 0 acetaminophen [Tylenol] 325 mg capsule 325 mg PO ONCE PRN (Reason: Pain) RF: 0 fluticasone propionate 50 mcg/actuation spray,suspension 1 spray intranasal DAILY RF: 0 loratadine [Claritin] 10 mg Tablet 10 mg PO DAILY RF: 0 Humulin N Pen 100 unit/mL (3 mL) Insulin Pen 100 unit SUBCUT DAILY RF: 0 omeprazole 20 mg Capsule,Delayed Release(Dr/Ec) 20 mg PO DAILY RF: 0 Primary Care Provider: Silvano Madden Referrals: Silvano Madden DO [Primary Care Provider] - Disposition Disposition: Acute Care Hospital [facility]
[2021-01-15] MEDS: Clopidogrel Bisulfate 75 MG Tablet PO (12:06)
--- NOTE | 2021-01-15 12:07 | ED.RN ---
pt given plavix at 1209 per order.
[2021-01-15 12:08] LABS: Absolute Lymphocyte Count 1.55 X10^3/uL (0.83-4.51); Basophil% 0.6 % (0-1); Eosinophil# 0.19 X10^3/uL; Eosinophils% 1.2 % (0-5); Hematocrit 52.8 % (40-54); Hemoglobin 17.9 g/dL (13.0-16.5); Lymphocyte # 1.55 X10^3/ul (0.83-4.51); Lymphocyte % 10.1 % (19-41); Mean Corp Hgb Conc 33.9 g/dL (32-36); Mean Corpuscular Hgb 29.9 pg (27.0-32.0); Mean Corpuscular Volume 88.3 fL (80-94); Mean Platelet Vol. 11.2 fl (6.2-12.0); Monocyte# 1.26 X10^3/uL; Monocyte% 8.2 % (0-10); NRBC Flagged by Analyzer 0 % (0-5); Neutrophil # 11.99 X10^3/uL (2.7-7.7); Neutrophil % 77.8 % (47-70); Platelet Count 327 K/mm3 (150-450); RBC Distribution Width CV 13.5 % (11.6-14.6); RBC Distribution Width SD 43.5 fl (35.1-43.9); Red Blood Count 5.98 M/mm3 (4.6-6.2); White Blood Count 15.4 K/mm3 (4.4-11.0)
--- NOTE | 2021-01-15 12:11 | RAD_ITS ---
STUDY: X-RAY CHEST REASON FOR EXAM: Male, 65 years old. Several week history of intermittent right-sided chest pain. TECHNIQUE: Single AP portable view of the chest. COMPARISON: Comparison is made with prior study dated 12/13/2020. FINDINGS: EKG electrodes are seen. The lungs are clear and expanded. There is no demonstrated pleural abnormality. Normal size heart. Normal mediastinum and hodan. Normal visualized pulmonary arteries. Normal visualized aortic arch and descending thoracic aorta. There are diffuse degenerative changes of the visualized thoracic spine. Normal visualized ribs, clavicles, and shoulders. There is no demonstrated abnormality of the visualized soft tissue structures of the upper abdomen. RAD/Chest 1 View (Portable) IMPRESSION: No acute abnormality is seen. Electronically Signed: Soy Esquivel MD at 12:31 EDT , Service support ,
--- NOTE | 2021-01-15 12:21 | ED.RN ---
per dr. prakash, asa ordered cancelled. unable to cancel due to computer error.
[2021-01-15 12:34] LABS: D-Dimer Quantitative (DVT/PE) 0.53 FEU/ug/m (0.27-0.49)
[2021-01-15 12:36] LABS: Anion Gap 6 (5-15); BUN 35 mg/dL (7-18); Calcium,Total 9.3 mg/dL (8.5-10.1); Chloride 95 mmol/L (98-107); Creatinine, Serum 1.46 mg/dL (0.70-1.30); EST Glomerular Filtration Rate 51 mL/min (>60); Est Glom Filt Rate - Afr Amer 62 mL/min (>60); Estimated Creatinine Clearance 57.01 ml/min; Glucose 300 mg/dL (74-106); Potassium 4.1 mmol/L (3.5-5.1); Sodium Level 130 mmol/L (136-145); Troponin-I HS 594 pg/mL (3.0-78.0)
[2021-01-15 12:41] LABS: BNP,B-Type NATRIURETIC PEPTIDE 31.3 pg/mL (0-100)
--- NOTE | 2021-01-15 12:44 | PCM.HP.STD ---
HPI - General General Date of Admission: 01/15/21 HPI Narrative LATOSHA FOLEY, is a 65 M came to ER with chest pressure that lasted about 15 to 20 minutes today while walking on the roof for half an hour. Patient had similar to the events on the same day about 3 weeks ago and was working on the hot day. Today patient states he felt like he could not breathe or catch breath because of the chest pressure and felt mild dizzy but denies passing out or palpitation. Chest pressure was mildly midsternal but without radiation or tingling or numbness sensation. Patient had arterial Doppler of lower extremities in July 2020 which showed Right [place] 1.3. Left digital brachial index 1.1 and PT not compressible with triphasic Doppler waveform at ankle level. Patient does not have history of prior SC or coronary artery disease or stroke. He does not smoke. In ED, patient twelve-lead EKG shows sinus rhythm with frequent PVCs, LAD, QTC 479 ms. Small Q-wave in V1 and V2. Patient had previous EKG in June 2010 which showed no Q waves. First isolated troponin is high His father has history of quadruple bypass surgery. [facility] Medical History Ambulates with cane Back pain Cancer Diabetes Diabetes type 2, controlled Diarrhea Difficulty balancing Gastric reflux Heartburn Hypertension Limb weakness Neck pain Shortness of breath on exertion Home Medications hydrochlorothiazide 25 mg tablet 25 mg PO DAILY 30 Days #30 05/25/17 [History Last Taken Unknown] insulin syringe-needle U-100 0.5 mL 31 gauge x 07/29 #50 ea 01/25/19 [History Last Taken Unknown] famotidine 20 mg tablet 20 mg PO DAILY 09/20/19 [History Last Taken Unknown] acetaminophen 325 mg capsule 325 mg PO ONCE PRN 01/19/20 [History Last Taken Unknown] bupropion HCl 150 mg tablet,12 hr sustained-release 150 mg PO DAILY 01/19/20 [History Last Taken Unknown] meloxicam 15 mg tablet 15 mg PO DAILY 01/19/20 [History Last Taken Unknown] metoprolol succinate 50 mg tablet,extended release 24 hr 50 mg PO DAILY #30 tab 01/19/20 [History Last Taken Unknown] fluticasone propionate 50 mcg/actuation nasal spray,suspension 1 spray INTRANASAL DAILY 08/03/20 [History Last Taken Unknown] insulin NPH isoph U-100 human [Humulin N Pen] 100 unit SUBCUT DAILY 09/19/20 [History Last Taken Unknown] loratadine [Claritin] 10 mg PO DAILY 09/19/20 [History Last Taken Unknown] omeprazole 20 mg PO DAILY 01/15/21 [History Last Taken Unknown] Allergy/AdvReac Type Severity Reaction Status Date / Time metformin Allergy Unknown Verified 01/15/21 11:23 cephalexin AdvReac Other Verified 01/15/21 11:24 Family History Mother Colon cancer Father Heart disease Surgical History History of cataract surgery History of hernia repair History of sinus surgery Social History Smoking Status: Never smoker alcohol intake: never ROS ROS Narrative Constitutional: Reports no fatigue and weakness HEENT: Reports systems reviewed and no addt'l complaints, except as documented Respiratory/Chest: As described in HPI Gastrointestinal: Denies coffee ground emesis, hematemesis or vomiting Genitourinary: Denies burning urination or new urinary tract symptoms Musculoskeletal: Chronic lumbar spinal stenosis pain. Reports mild lumbar joint pain and limited range of motion Neurologic: Denies seizure-like activity skin: No ulcer. No rash Endocrinology: Reports systems reviewed and no addt'l complaints, except as documented Hematologic/Lymphatic: Reports systems reviewed and no addt'l complaints, except as documented Rest 12 ROS are negative except as mentioned in HPI Vital Signs Vital Signs Vital Signs: 01/15/21 11:21 01/15/21 11:30 01/15/21 12:01 Temperature 97.5 F L Temperature Source Temporal Pulse Rate 51 L Respiratory Rate 20 H Respiratory Effort Short of Breath Blood Pressure 144/84 H Blood Pressure Mean 104 Pulse Ox 100 Oxygen Delivery Method Room Air Room Air 01/15/21 12:28 Temperature Temperature Source Pulse Rate 76 Respiratory Rate 16 Respiratory Effort Blood Pressure 134/83 H Blood Pressure Mean 100 Pulse Ox 97 Oxygen Delivery Method Room Air Weight Weight: 225 lb Body Mass Index (BMI) 29.7 Physical Exam Narrative General: Alert, Oriented x3, Cooperative HEENT: Atraumatic, PERRLA, EOMI, Normocephalic Oral: No Gingival or Mucosal Lesions/ Ulcerations Neck: Supple, No JVD, Negative Carotid Bruits Lungs: Air entry equal in bilateral lung bases. No crepitation/rhonchi Cardiovascular: Regular rate, Regular Rhythm, Normal S1, Normal S2, No murmurs Abdomen: Bowel Sounds Present, Soft, Non Tender, Non-Distended : No renal angle tenderness. No suprapubic tenderness. Extremities: No edema, Capillary Refill Less than 3 Seconds Skin: No rashes, No breakdown Musculoskeletal: No Tenderness to Palpation of Joints or Extremities Neurological: Cranial nerves II-XII grossly intact, DTR 2+/4 and Symmetrical, Neuro grossly intact Psych/Mental Status: Normal Affect, Appropriate. Results Lab / Micro Data Result Diagrams: 01/15/21 11:32 01/15/21 11:32 Labs: Laboratory Results - last 24 hr 01/15/21 11:32: WBC 15.4 H, RBC 5.98, Hgb 17.9 H, Hct 52.8, MCV 88.3, MCH 29.9, MCHC 33.9, RDW Std Deviation 43.5, RDW Coeff of Power 13.5, Plt Count 327, MPV 11.2, Immature Gran % (Auto) 2.100 H, Neut % (Auto) 77.8 H, Lymph % (Auto) 10.1 L, [place] % (Auto) 8.2, Eos % (Auto) 1.2, Baso % (Auto) 0.6, Absolute Neuts (auto) 12.0 H, Absolute Lymphs (auto) 1.55, Nucleated RBC % 0 01/15/21 11:32: D-Dimer Quant (PE/DVT) 0.53 H* 01/15/21 11:32: Sodium 130 L, Potassium 4.1, Chloride 95 L, Carbon Dioxide 29.0, Anion Gap 6, BUN 35 H, Creatinine 1.46 H, Estim Creat Clear Calc 57.01, Est GFR (MDRD) Af Amer 62, Est GFR (MDRD) Non-Af 51 L, BUN/Creatinine Ratio 24.0 H, Glucose 300 H, Calcium 9.3, Troponin I High Sens 594 H* 01/15/21 11:32: B-Natriuretic Peptide 31.3 Radiology Impression Chest X-Ray 01/15/21 12:11 IMPRESSION: No acute abnormality is seen. Electronically Signed: Soy Esquivel MD at 12:31 EDT , Service support , Assessment & Plan Assessment/Plan (1) Non-ST elevated myocardial infarction: PLAN: 1. Non-STEMI: Patient is being admitted in PCU. Initially patient wanted to go home and come back but was advised to get admitted for serious condition non-STEMI. Started on baby aspirin, IV heparin drip. Patient also had 1 dose of Plavix in ER. On low-dose metoprolol lisinopril and high intensity statin. 2D echo ordered. Fasting profile, TSH tomorrow a.m. Monitor electrolytes. BNP normal. Serial isolated troponin EKG on the floor. Tactical Debriefer Officer is consulted. 2. Diabetes mellitus type 2: A1c tomorrow a.m. Glucose is 300 mg/dL in BMP. Accu-Chek before meals and at bedtime cover with Humalog sliding scale. Lantus 10 units subcutaneous at bedtime daily. 3. Lumbar spinal stenosis bilateral knee primary osteoarthritis: Hold meloxicam. Patient cannot take baby aspirin meloxicam and he has history of minor bruises once when he was taking both. 4. VTE prophylaxis: On IV heparin drip. Living will/advanced directive/end of life care: Patient does have living will or advanced directive. His brother is power of personnel security specialist for health. After discussion of benefits/risks procedures involved with full code, DNR CC arrest and DNR CC, the patient opted for full code. Patient does want artificial life support including intubation, tube feed, ventilator and/chest compression, central venous catheter, vasopressor and DC shock if needed Total time spent in [id number] encounter in discussion of advanced directive 16 minutes. Charges/Coding Visit Charges Inpatient E&M: 62067 Init Hosp L3 Procedures Hospitalists Procedures: 62379 Advncd Care Plan 30 Min
[2021-01-15] MEDS: Nitroglycerin Oint 1 INCH PACKET TD (13:07)
[2021-01-15] MEDS: Heparin Injection (Vial) 5,000 UNIT/ML VIAL 7500 UNIT IV (13:14)
[2021-01-15] MEDS: HEPARIN/D5w 25,000 UNITS 25,000 UNITS/250 ML IV.SOLN. 14 UNITS IV (13:14)
[2021-01-15 13:18] LABS: Partial Thromboplast Time 27.5 Seconds (24.1-36.2); Prothrombin Time (Protime)PT. 12.9 SECONDS (11.7-14.9)
--- NOTE | 2021-01-15 13:39 | EKG12_ITS ---
Test Reason : AM EKG Blood Pressure : / mmHG Vent. Rate : 065 BPM Atrial Rate : 065 BPM P-R Int : 144 ms QRS Dur : 118 ms QT Int : 464 ms P-R-T Axes : 068 -26 -06 degrees QTc Int : 482 ms Normal sinus rhythm Leftward axis Incomplete left bundle branch block Abnormal ECG Confirmed by DONA VYAS, LEESA ([id number]), index editor ARMANDO ALMANZA ([id number]) on 01/17/2021 9:05:07 AM Referred By: AHMET Confirmed By:LEESA CARCAMO MD
--- NOTE | 2021-01-15 13:42 | PCS.PANDOC ---
PANDEMIC DOCUMENTATION INITIATED: Date: 10/29/2020 Time: 190
[2021-01-15] MEDS: 0.9% Normal Saline 1,000 ML 75 ML IV (14:19)
[2021-01-15] MEDS: Aspirin E.C. 81 MG Tablet PO (14:20)
[2021-01-15 14:45] LABS: Magnesium 2.2 mg/dL (1.6-2.6); Troponin-I HS 3832 pg/mL (3.0-78.0)
--- NOTE | 2021-01-15 15:09 | PCM.CONS.C ---
Assessment & Plan Assessment/Plan (1) Non-ST elevated myocardial infarction: PLAN: The patient has findings concerning for an acute coronary syndrome with acute non-ST segment elevation OR. At the present time he is being monitored. He is going to have follow-up cardiac enzymes and ECG. An echocardiogram is pending. He has been placed on medical therapy as noted above. A recommendation has been made for further evaluation with diagnostic cardiac catheterization. The procedure and risk were discussed with him. He was agreeable to this approach. (2) Benign essential HTN: PLAN: The patient has a history of hypertension. He will continue medical management and follow-up. (3) Diabetes mellitus: PLAN: The patient has a history of diabetes mellitus. He states that he believes its been under reasonably good control based upon his hemoglobin A1c levels. He will continue evaluation care per internal medicine. Addt'l Comments The patient's case has been reviewed with the patient, his spouse, and Dr. Thornton of the [facility] emergency department staff. This note was generated using a voice recognition system and there may be incorrect words, spelling or punctuation that were not noted when reviewing the office note prior to saving. HPI Consult Data Date of Consult: 01/15/21 HPI Narrative HPI Narrative: LATOSHA FOLEY, is a 65 year old white male who presents for cardiovascular consultation based upon concerns of symptoms compatible with an acute coronary syndrome and an acute non-ST segment elevation OR. The patient states the best of his knowledge other than his history of hypertension and diabetes mellitus and reported asthma superimposed upon a history of spinal stenosis he does not have any other defined cardiovascular disease. He states he has been diagnosed in the past for his concerns of shortness of breath and dyspnea on exertion with asthma. He states he has been treated medically for such. He notes over time the symptoms have worsened especially with exertional activity. He states the symptoms have caused him to interrupt his exertional activity and stop and rest. He states when he becomes short of breath and dyspneic he also has chest discomfort. Again he will stop and rest and feel better. He has denied orthopnea, PND, palpitations, near-syncope, and syncope. He notes based upon recurrent symptoms while he was trying to clean the gutters on his house today he had to stop and rest. He was brought to the emergency department for further evaluation. There on evaluation he was found to have abnormal troponin I levels and what was considered to be an abnormal ECG. His findings were thought compatible with a non-ST segment elevation OR. He was placed in the PCU for further evaluation and care on medical management including receiving aspirin, antiplatelet therapy with clopidogrel/Plavix, IV heparin, beta-blockers, afterload reducing agents, and lipid-lowering agents. He states he is feeling better at rest. [facility] Medical History (Updated 01/15/21 @ 15:[address] Ry Stephenson MD) Ambulates with cane Back pain Benign essential HTN Cancer Diabetes Diabetes mellitus Diabetes type 2, controlled Diarrhea Difficulty balancing Gastric reflux Heartburn Hypertension Limb weakness Neck pain Shortness of breath on exertion Home Medications hydrochlorothiazide 25 mg tablet 25 mg PO DAILY 30 Days #30 05/25/17 [History Last Taken 01/15/21] insulin syringe-needle U-100 0.5 mL 31 gauge x 07/29 #50 ea 01/25/19 [History Last Taken Unknown] acetaminophen 325 mg capsule 325 mg PO ONCE PRN 01/19/20 [History Last Taken 01/14/21] bupropion HCl 150 mg tablet,12 hr sustained-release 150 mg PO DAILY 01/19/20 [History Last Taken 01/15/21] meloxicam 15 mg tablet 15 mg PO DAILY 01/19/20 [History Last Taken 01/15/21] metoprolol succinate 50 mg tablet,extended release 24 hr 50 mg PO DAILY #30 tab 01/19/20 [History Last Taken 01/15/21] fluticasone propionate 50 mcg/actuation nasal spray,suspension 1 spray INTRANASAL DAILY 08/03/20 [History Last Taken 01/14/21] insulin NPH isoph U-100 human [Humulin N Pen] 100 unit SUBCUT DAILY 09/19/20 [History Last Taken Unknown] loratadine [Claritin] 10 mg PO DAILY 09/19/20 [History Last Taken 01/15/21] doxycycline hyclate 40 mg PO DAILY 01/15/21 [History Last Taken Unknown] omeprazole 20 mg PO DAILY 01/15/21 [History Last Taken 01/14/21] Allergy/AdvReac Type Severity Reaction Status Date / Time metformin Allergy Unknown Verified 01/15/21 11:23 cephalexin AdvReac Other Verified 01/15/21 11:24 Family History Mother Colon cancer Father Heart disease Surgical History History of cataract surgery History of hernia repair History of sinus surgery Social History Smoking Status: Never smoker alcohol intake: never ROS Constitutional Constitutional: Reports as per HPI Eyes Eyes: Reports as per HPI ENT HEENT: Reports as per HPI Cardiovascular Cardiovascular: Reports chest pain and dyspnea on exertion Respiratory/Chest Respiratory/Chest: Reports dyspnea on exertion Gastrointestinal Gastrointestinal: Reports as per HPI Genitourinary Genitourinary: Reports as per HPI Musculoskeletal Musculoskeletal: Reports as per HPI Integumentary Integumentary: Reports as per HPI Neurologic Neurologic: Reports as per HPI Physical Exam Const alert, oriented x3, no apparent distress and healthy appearing Orientation / Consciousness: awake HEENT normocephalic, head/scalp atraumatic and hearing grossly normal bilaterally Eyes PERRL, EOMs intact bilaterally and conjunctivae normal Neck full ROM, supple and no JVD Chest inspection of chest normal Resp clear to auscultation bilaterally Cardio regular rate, regular rhythm, S1 normal heart sound and S2 normal heart sound GI normal to inspection, nondistended, normoactive bowel sounds Extremity no pedal edema Skin no rashes or lesions noted Neuro oriented x3 and moves all extremities Psych mental status grossly normal Risk Stratification Risk Stratification Applicable: Yes Age >/= 65: Yes >/= 3 CAD Risk Factors (HTN, HLD, DM, family hx of CAD, or current smoker): Yes Aspirin Use in the Past 7 Days: No Severe Angina (>/= episodes in 24 hours): No EKG ST Changes >/= 0.5mm: No Positive Cardiac Marker: Yes NGOZI Risk Stratification Score: 3 NGOZI % Risk: 13% Risk Procedure Criteria Type of Procedure Procedure Type: Elective Elective Risks - COVID COVID Risk Discussion: The surgeon/proceduralist and patient have discussed in detail the risk of exposure to and/or potential harm posed by the COVID-19 virus with having a surgery/procedure at this time versus the risk of delaying the surgery/procedure. It is not possible to know either the risk of delaying the surgery or procedure or chance of getting an infection with perfect accuracy, but a joint decision was made between the patient and the surgeon/proceduralist to proceed at this time with the scheduled surgery/procedure as indicated on the consent form. Objective Data Vital Signs: Vital Signs Temp Pulse Resp BP Pulse Ox 98.6 F 89 16 145/90 H 98 01/15/21 13:43 01/15/21 14:34 01/15/21 13:43 01/15/21 13:43 01/15/21 13:43 Oxygen Delivery Method Room Air Weight: 229 lb 1 oz Body Mass Index (BMI) 30.2 Lab / Micro Data Result Diagrams: 01/15/21 11:32 01/15/21 11:32 Labs: Laboratory Results - last 24 hr 01/15/21 11:32: WBC 15.4 H, RBC 5.98, Hgb 17.9 H, Hct 52.8, MCV 88.3, MCH 29.9, MCHC 33.9, RDW Std Deviation 43.5, RDW Coeff of Power 13.5, Plt Count 327, MPV 11.2, Immature Gran % (Auto) 2.100 H, Neut % (Auto) 77.8 H, Lymph % (Auto) 10.1 L, [place] % (Auto) 8.2, Eos % (Auto) 1.2, Baso % (Auto) 0.6, Absolute Neuts (auto) 12.0 H, Absolute Lymphs (auto) 1.55, Nucleated RBC % 0 01/15/21 11:32: D-Dimer Quant (PE/DVT) 0.53 H* 01/15/21 11:32: Sodium 130 L, Potassium 4.1, Chloride 95 L, Carbon Dioxide 29.0, Anion Gap 6, BUN 35 H, Creatinine 1.46 H, Estim Creat Clear Calc 57.01, Est GFR (MDRD) Af Amer 62, Est GFR (MDRD) Non-Af 51 L, BUN/Creatinine Ratio 24.0 H, Glucose 300 H, Calcium 9.3, Troponin I High Sens 594 H* 01/15/21 11:32: B-Natriuretic Peptide 31.3 01/15/21 12:51: PT 12.9, INR 1.0, APTT 27.5 01/15/21 14:00: Magnesium 2.2, Troponin I High Sens 3832 H* Micro: Microbiology 01/15/21 12:15 Nasal Secretion SARS-CoV-2 Antigen (Rapid) - Final Cardiology Labs/Tests 01/15/21 11:32: WBC 15.4 H, RBC 5.98, Hgb 17.9 H, Hct 52.8, MCV 88.3, MCH 29.9, MCHC 33.9, Plt Count 327, MPV 11.2, Immature Gran % (Auto) 2.100 H, Neut % (Auto) 77.8 H, Lymph % (Auto) 10.1 L, [place] % (Auto) 8.2, Eos % (Auto) 1.2, Baso % (Auto) 0.6, Absolute Neuts (auto) 12.0 H, Nucleated RBC % 0 01/15/21 11:32: D-Dimer Quant (PE/DVT) 0.53 H* 01/15/21 11:32: Sodium 130 L, Potassium 4.1, Chloride 95 L, Carbon Dioxide 29.0, Anion Gap 6, BUN 35 H, Creatinine 1.46 H, Est GFR (MDRD) Af Amer 62, Est GFR (MDRD) Non-Af 51 L, BUN/Creatinine Ratio 24.0 H, Glucose 300 H, Calcium 9.3 01/15/21 11:32: B-Natriuretic Peptide 31.3 01/15/21 12:51: PT 12.9, INR 1.0, APTT 27.5 01/15/21 14:00: Magnesium 2.2 Rhythm: Sinus rhythm EKG: Sinus rhythm; PVCs Radiography Diagnostic Testing: Radiology Impression Chest X-Ray 01/15/21 12:11 IMPRESSION: No acute abnormality is seen. Electronically Signed: Soy Esquivel MD at 12:31 EDT , Service support ,
--- NOTE | 2021-01-15 15:57 | CASEMGMT ---
According to the [facility] dual website, the following are in-network tertiary facilities: [facility], [place], [facility], [place], [facility], [place], [facility], and . Amrita YU CM
[2021-01-15 16:20] LABS: Bedside Glucose 259 mg/dL (70-110)
[2021-01-15 17:57] LABS: Troponin-I HS 5828 pg/mL (3.0-78.0)
[2021-01-15] MEDS: Insulin NPH Human 100 UNITS/ML PEN 70 UNITS SC (18:04)
[2021-01-15 20:30] LABS: Partial Thromboplast Time 77.3 Seconds (24.1-36.2)
[2021-01-15] MEDS: Atorvastatin Calcium 80 MG Tablet PO (21:07)
[2021-01-15] MEDS: Insulin Lispro 100 UNIT/ML INSULN.PEN SC (21:08)
[2021-01-15 22:00] LABS: Bedside Glucose 209 mg/dL (70-110)
[2021-01-16] VITALS (16 sets, daily range): BP systolic 114–143; BP diastolic 71–90; PULSE 55–80; RESP 12–18; TEMP 36.4–37.1; O2SAT 94–98
[2021-01-16 01:37] LABS: Partial Thromboplast Time 67.2 Seconds (24.1-36.2)
--- NOTE | 2021-01-16 05:00 | EKG12_ITS ---
Test Reason : CP Blood Pressure : / mmHG Vent. Rate : 084 BPM Atrial Rate : 084 BPM P-R Int : 150 ms QRS Dur : 116 ms QT Int : 394 ms P-R-T Axes : 047 -26 011 degrees QTc Int : 465 ms Normal sinus rhythm Leftward axis Incomplete left bundle branch block Confirmed by DONA VYAS, LEESA ([id number]), photographic editor ARMANDO ALMANZA ([id number]) on 01/17/2021 9:07:41 AM Referred By: AHMET Confirmed By:LEESA CARCAMO MD
[2021-01-16] MEDS: Lisinopril 2.5 MG Tablet PO (06:17)
[2021-01-16] MEDS: Aspirin E.C. 81 MG Tablet PO (06:17)
[2021-01-16] MEDS: Metoprolol Tartrate 25 MG Tablet PO (06:17)
[2021-01-16 06:50] LABS: Bedside Glucose 85 mg/dL (70-110)
[2021-01-16 07:53] LABS: Absolute Lymphocyte Count 2.63 X10^3/uL (0.83-4.51); Absolute Neutrophil Count 7.4 X10^3/uL (2.0-7.7); Basophil# 0.09 X10^3/uL; Basophil% 0.8 % (0-1); Eosinophils% 2.6 % (0-5); Hematocrit 49.4 % (40-54); Hemoglobin 16.6 g/dL (13.0-16.5); Lymphocyte # 2.63 X10^3/ul (0.83-4.51); Lymphocyte % 22.4 % (19-41); Mean Corp Hgb Conc 33.6 g/dL (32-36); Mean Corpuscular Hgb 29.6 pg (27.0-32.0); Mean Corpuscular Volume 88.1 fL (80-94); Mean Platelet Vol. 10.6 fl (6.2-12.0); Monocyte% 9.4 % (0-10); NRBC Flagged by Analyzer 0 % (0-5); Neutrophil # 7.43 X10^3/uL (2.7-7.7); Neutrophil % 63.3 % (47-70); Platelet Count 302 K/mm3 (150-450); RBC Distribution Width CV 13.7 % (11.6-14.6); RBC Distribution Width SD 43.9 fl (35.1-43.9); Red Blood Count 5.61 M/mm3 (4.6-6.2); White Blood Count 11.7 K/mm3 (4.4-11.0)
[2021-01-16 08:27] LABS: Partial Thromboplast Time 26.4 Seconds (24.1-36.2)
[2021-01-16 08:30] LABS: Anion Gap 5 (5-15); BUN 21 mg/dL (7-18); BUN/Creat Ratio 19.3 RATIO (10-20); Calcium,Total 8.9 mg/dL (8.5-10.1); Chloride 99 mmol/L (98-107); Cholesterol 168 mg/dL (200); Creatinine, Serum 1.09 mg/dL (0.70-1.30); EST Glomerular Filtration Rate 72 mL/min (>60); Est Glom Filt Rate - Afr Amer 87 mL/min (>60); Estimated Creatinine Clearance 76.36 ml/min; Glucose 102 mg/dL (74-106); High Density Lipoprotein 47 mg/dL; Potassium 3.7 mmol/L (3.5-5.1); Sodium Level 135 mmol/L (136-145); Thyroid Stim Hormone (TSH) 1.82 uIU/mL (0.358-3.74); Triglycerides 168 mg/dL; Very Low Density Lipoprotein 34 mg/dL (5-40)
--- NOTE | 2021-01-16 09:06 | CL.D_ITS ---
Patient Name: LATOSHA FOLEY Study Date: 01/16/2021 Performing: Ry Stephenson MD Ht: 73 inches 185 cm : 1955 Wt: 229.6 lbs 104 kg Age: 65 Gender: male BSA: 2.28 PROCEDURE(S) PERFORMED TH60-HEQ/COR/LV CLINICAL PROFILE AND INDICATIONS Indications: ACS <= 24 hrs, Suspected CAD Heart Failure: None Stress/Imaging Stress/Image Study Performed: No Angina Classification Anginal Classification w/in 2 Weeks: CCS II CAD Presentations: Non-STEMI. CONCLUSIONS Normal Left Ventricular End Diastolic Pressure Segmented LV systolic dysfunction- Mild LVEF: by LV gram 50 % [place] Multivessel CAD Left to Right collateral flow RECOMMENDATIONS Risk factor modification Medical therapy Surgery consult for coronary revascularization DESCRIPTION OF PROCEDURE The patient arrived to the procedure lab. The risks and benefits of the procedure as well as a full d escription of our services here and current unavailability of surgical backup were fully explained to the patient and/or their significant other prior to the catheterization. The Timeout was completed, verifying the correct patient and procedure. The patient's procedural site was prepped and draped in the usual fashion. Local anesthetic was given subcutaneously to right radial region with Lidocaine 2% . Using a modified Seldinger technique, arterial access was obtained via the right radial artery, a 6 Fr sheath was inserted. Right Coronary Artery selective angiography was then performed in multiple v iews using a 5 Fr. 4.0 [place] catheter. Left Coronary Artery selective angiography was performed in mu ltiple views using a 5 Fr. JL3.5 catheter. Left Ventriculography was performed in MONGE projection usin g a 5 Fr. Pigtail catheter. LV to AO pullback pressures were then recorded.The arterial sheath was pulled and a TR Band was applied for hemostasis. Sheath Flushed prior to removal. 7cc air inserted. CORONARY ANGIOGRAPHY DOMINANCE: Right Dominant LEFT HEART ASSESSMENT Left Ventricular Ejection Fraction: by LV Gram 50 % Anterior Hypokinesis. Apical Hypokinesis Normal Left Ventricular End Diastolic Pressure LVEDP: 4 mmHg LEFT MAIN: Angiographically normal LEFT ANTERIOR DESCENDING ARTERY: Mild luminal irregularities PROX LAD: Mild calcification, 75 % Stenosis MID LAD: 50 % Stenosis DIAGONAL 1: Proximal - diffuse: irregular: 50 % Stenosis CIRCUMFLEX ARTERY: Mild luminal irregularities PROX CIRC: Mild calcification OM 1: Proximal - long: diffuse: 90 % Stenosis OM 2: Proximal - diffuse: irregular: 50 - 75 % Stenosis, Mid - 50 - 75 % Stenosis RIGHT CORONARY ARTERY: PROX RCA: Mild calcification, 50 % Stenosis MID RCA: Mild calcification, 75 % Stenosis DISTAL RCA: hazy: 75 % Stenosis RT PDA: Proximal - is occluded: fills from left to right collateral flow COLLATERAL FLOW: Collateral flow from Left to Right AORTIC ROOT: Angiographically normal COMPLICATIONS No Complications PROCEDURE MEDICATIONS Fentanyl 50 mcg IV Versed 1 mg IV Fentanyl 50 mcg IV Versed 1 mg IV Oxygen: 2 L/min via nasal cannula Heparin given IA 01/16/2021 08:15:05 Verapamil 2.5mg, Ntg 100mcgs, 3000 units of Heparin given IA 01/16/2021 08:15:05 SUMMARY OF HEMODYNAMIC DATA Time AIR REST ECG 07:46:35 AO 98/68 (80) SA 08:18:53 LV 124/-7, 8 08:35:38 LV 126/-8, 4 08:35:44 LV 124/-6, 5 08:36:37 LV 124/-8, 5 08:36:43 LVp 138/-1, 11 08:36:51 AOp 120/68 (89) 08:36:56 Signed By Ry Stephenson MD On 01/16/2021 9:05:38 AM Ry Stephenson MD
[2021-01-16] MEDS: 0.9% Normal Saline 1,000 ML 75 ML IV (09:21)
[2021-01-16] MEDS: Loratadine 10 MG Tablet PO (09:22)
[2021-01-16] MEDS: Pantoprazole Sodium 40 MG Tablet PO (09:22)
[2021-01-16] MEDS: buPROPion (XL) 150 MG TABLET.XL PO (09:24)
[2021-01-16 10:50] LABS: Bedside Glucose 109 mg/dL (70-110)
--- NOTE | 2021-01-16 11:29 | PCM.DC ---
Discharge Instructions Diet Discharge Diet: Low fat / Low cholesterol and 2000 mg Sodium Diet Activity Discharge Activity: Return to Normal Activity and - (No exertional work.) Dressing / Incision Call your doctor if you observe: Fever of 101 or Higher, Coldness, Increased Pain, Numbness or Tingling, Change in Color, Inability to urinate, Inability to have a bowel movement, Shortness of breath, Dizziness, Fainting spells, Swelling in the ankles, Chest pain, Prolonged hiccupping, Increased palpitations (irregular heartbeat), Calf discomfort and Uncontrolled pain Follow Up Care Test Results: Test results from this visit will be discussed in further detail at your follow-up appointment, if applicable. Discharge Plan Admission Admit Date/Time: 01/15/21 12:45 Primary Reason for Your Visit: Non-STEMI, triple-vessel coronary artery disease Attending Provider: Crispin Abdullahi Primary Care Provider: Silvano Madden Instructions Additional Instructions / Restrictions: Follow-up cardiothoracic surgeon [facility] in 2 to 3 days to schedule for CABG surgery. Emt Driver Dr. Stephenson will write the letter for the cardiac surgeon along with the CD of the cardiac cath. No exertional work prior to CABG. Discharge Orders/Prescriptions Prescriptions: New aspirin 81 mg Tablet,Delayed Release (Dr/Ec) 81 mg PO BREAKFAST Qty: 90 RF: 0 atorvastatin 80 mg Tablet 80 mg PO QHS Qty: 30 RF: 2 nitroglycerin 0.4 mg Tablet, Sublingual 0.4 mg sublingual Q5M PRN (Reason: Cardiac/Chest Pain) Qty: 30 RF: 0 lisinopril 2.5 mg Tablet 2.5 mg PO DAILY Qty: 30 RF: 0 isosorbide mononitrate 30 mg tablet extended release 24 hr 30 mg PO DAILY Qty: 30 RF: 0 Continued hydrochlorothiazide 25 mg tablet 25 mg PO DAILY 30 Days Qty: 30 RF: 0 (DME) insulin syringe-needle U-100 0.5 mL 31 gauge x 5/16 syringe See Rx Instructions .ROUTE .MEDSUPPLY Qty: 50 RF: 0 bupropion HCl [Wellbutrin SR] 150 mg tablet sustained-release 12 hr 150 mg PO DAILY RF: 0 acetaminophen [Tylenol] 325 mg capsule 325 mg PO ONCE PRN (Reason: Pain) RF: 0 fluticasone propionate 50 mcg/actuation spray,suspension 1 spray intranasal DAILY RF: 0 loratadine [Claritin] 10 mg Tablet 10 mg PO DAILY RF: 0 insulin NPH isoph U-100 human 100 unit/mL (3 mL) Insulin Pen 100 unit SUBCUT DAILY RF: 0 omeprazole 20 mg Capsule,Delayed Release(Dr/Ec) 20 mg PO DAILY RF: 0 metoprolol succinate 50 mg tablet extended release 24 hr 50 mg PO DAILY Qty: 30 RF: 0 Discontinued meloxicam 15 mg tablet 15 mg PO DAILY RF: 0 doxycycline hyclate 20 mg tablet 40 mg PO DAILY RF: 0 Referrals / Follow Up: Silvano Madden DO [Primary Care Provider] - In 1 Week Ry Stephenson MD [STAFF PHYSICIAN] - Within 1 Month (CAD) Disposition Disposition (needs filled in before D/C Order can be placed): Home, Self Care
--- NOTE | 2021-01-16 14:10 | CASEMGMT ---
AIMEE DE LEON assessment: Face to Face with patient for initial transition planning/care coordination assessment. AIMEE DE LEON introduced self and role at [facility], pt voices understanding and consents to assessment. Pt is sitting up in bed on room air. Pt is A/Ox4 and answers all questions appropriately. Care providers, pharmacy, and demographics verified. Presentation: Right chest pain for several weeks with exertional dyspnea Admitting dx: NSTEMI PCP: [facility] Specialists: [facility]; Claudia Schaefer, derm; rene Gallegos Preferred Pharmacy: [facility] Insurance: [facility] Prescription Benefit: Yes Living Will/HPOA: Pt states has LW/HPOA and is aware that they are not on file at [facility]. Pt states his brother, Micah Coon, is HPOA. LNOK: Micah Coon, brother/HPOA Living Arrangements: Pt states lives alone in 1 story home with laundry in basement and states some concerns with steps at times. Pt is independent w/ ADL's. Transportation: Pt states drives self and states no transportation concerns. DME/HHC: Pt states has a cane, rollator, and shower seats(does not use). Pt states no need for any further DME. Pt states no hx of HHC or SNF. Pt states no concerns with going home at time of discharge. Pt is retired. Pt states does not smoke cigarettes but does rarely drink ETOH. Pt voices no further concerns/needs. CM to follow for any further discharge planning/needs. Advised pt to ask for CM if any further questions/concerns/needs arise, voices understanding. Pt Goal: Home [place] AIMEE [place] LEON
--- NOTE | 2021-01-16 15:37 | PN.CARD_ITS ---
Subjective Subjective The patient underwent diagnostic cardiac catheterization earlier this day. He had no obvious post procedure related symptoms/adverse events. Objective Data Vital Signs: Vital Signs Temp Pulse Resp BP Pulse Ox 97.9 F 102 H 18 123/65 H 94 01/16/21 15:35 01/16/21 15:35 01/16/21 15:35 01/16/21 15:35 01/16/21 15:35 Oxygen Flow Rate (L/min) 5 Oxygen Delivery Method Nasal Cannula Weight: 229 lb 0.964 oz Body Mass Index (BMI) 30.2 Intake & Output: Intake and Output for Last 24 Hours 01/14/21 01/15/21 01/16/21 23:59 23:59 23:59 Intake Total 105.23 / 105.23 1683.0 / 1683.0 Balance 105.23 / 105.23 1683.0 / 1683.0 Lab / Micro Data Result Diagrams: 01/16/21 07:30 01/16/21 07:30 Labs: Laboratory Results - last 24 hr 01/15/21 16:09: POC Glucose 259 H 01/15/21 17:08: Troponin I High Sens 5828 H* 01/15/21 19:20: APTT 77.3 H 01/15/21 21:02: POC Glucose 209 H 01/16/21 01:05: APTT 67.2 H 01/16/21 06:15: POC Glucose 85 01/16/21 07:30: WBC 11.7 H, RBC 5.61, Hgb 16.6 H, Hct 49.4, MCV 88.1, MCH 29.6, MCHC 33.6, RDW Std Deviation 43.9, RDW Coeff of Power 13.7, Plt Count 302, MPV 10.6, Immature Gran % (Auto) 1.500 H, Neut % (Auto) 63.3, Lymph % (Auto) 22.4, [place] % (Auto) 9.4, Eos % (Auto) 2.6, Baso % (Auto) 0.8, Absolute Neuts (auto) 7.4, Absolute Lymphs (auto) 2.63, Nucleated RBC % 0 01/16/21 07:30: Sodium 135 L, Potassium 3.7, Chloride 99, Carbon Dioxide 31.0, Anion Gap 5, BUN 21 H, Creatinine 1.09, Estim Creat Clear Calc 76.36, Est GFR (MDRD) Af Amer 87, Est GFR (MDRD) Non-Af 72, BUN/Creatinine Ratio 19.3, Glucose 102, Calcium 8.9, Triglycerides 168, Cholesterol 168, LDL Cholesterol 87, VLDL Cholesterol 34, HDL Cholesterol 47, TSH 1.82 01/16/21 07:30: APTT 26.4 01/16/21 10:46: POC Glucose 109 Micro: Microbiology 01/15/21 12:15 Nasal Secretion SARS-CoV-2 Antigen (Rapid) - Final Cardiology Labs/Tests 01/15/21 19:20: APTT 77.3 H 01/16/21 01:05: APTT 67.2 H 01/16/21 07:30: WBC 11.7 H, RBC 5.61, Hgb 16.6 H, Hct 49.4, MCV 88.1, MCH 29.6, MCHC 33.6, Plt Count 302, MPV 10.6, Immature Gran % (Auto) 1.500 H, Neut % (Auto) 63.3, Lymph % (Auto) 22.4, [place] % (Auto) 9.4, Eos % (Auto) 2.6, Baso % (Auto) 0.8, Absolute Neuts (auto) 7.4, Nucleated RBC % 0 01/16/21 07:30: Sodium 135 L, Potassium 3.7, Chloride 99, Carbon Dioxide 31.0, Anion Gap 5, BUN 21 H, Creatinine 1.09, Est GFR (MDRD) Af Amer 87, Est GFR (MDRD) Non-Af 72, BUN/Creatinine Ratio 19.3, Glucose 102, Calcium 8.9, Triglycerides 168, Cholesterol 168, LDL Cholesterol 87, VLDL Cholesterol 34, HDL Cholesterol 47 01/16/21 07:30: APTT 26.4 Rhythm: Sinus rhythm EKG: Sinus rhythm; incomplete left bundle branch block pattern Cardiac Cath: CONCLUSIONS Normal Left Ventricular End Diastolic Pressure Segmented LV systolic dysfunction- Mild LVEF: by LV gram 50 % [place] Multivessel CAD Left to Right collateral flow RECOMMENDATIONS Risk factor modification Medical therapy Surgery consult for coronary revascularization DESCRIPTION OF PROCEDURE The patient arrived to the procedure lab. The risks and benefits of the procedure as well as a full description of our services here and current unavailability of surgical backup were fully explained to the patient and/or their significant other prior to the catheterization. The Timeout was completed, verifying the correct patient and procedure. The patient's procedural site was prepped and draped in the usual fashion. Local anesthetic was given subcutaneously to right radial region with Lidocaine 2%. Using a modified Seldinger technique, arterial access was obtained via the right radial artery, a 6Fr sheath was inserted. Right Coronary Artery selective angiography was then performed in multiple views using a 5 Fr. 4.0 Roff catheter. Left Coronary Artery selective angiography was performed in multiple views using a 5 Fr. JL3.5 catheter. Left Ventriculography was performed in MONGE projection using a 5 Fr. Pigtail catheter. LV to AO pullback pressures were then recorded.The arterial sheath was pulled and a TR Band was applied for hemostasis. Sheath Flushed prior to removal. 7cc air inserted. CORONARY ANGIOGRAPHY DOMINANCE: Right Dominant LEFT HEART ASSESSMENT Left Ventricular Ejection Fraction: by LV Gram 50 % Anterior Hypokinesis. Apical Hypokinesis Normal Left Ventricular End Diastolic Pressure LVEDP: 4 mmHg LEFT MAIN: Angiographically normal LEFT ANTERIOR DESCENDING ARTERY: Mild luminal irregularities PROX LAD: Mild calcification, 75 % Stenosis MID LAD: 50 % Stenosis DIAGONAL 1: Proximal - diffuse: irregular: 50 % Stenosis CIRCUMFLEX ARTERY: Mild luminal irregularities PROX CIRC: Mild calcification OM 1: Proximal - long: diffuse: 90 % Stenosis OM 2: Proximal - diffuse: irregular: 50 - 75 % Stenosis, Mid - 50 - 75 % Stenosis RIGHT CORONARY ARTERY: PROX RCA: Mild calcification, 50 % Stenosis MID RCA: Mild calcification, 75 % Stenosis DISTAL RCA: hazy: 75 % Stenosis RT PDA: Proximal - is occluded: fills from left to right collateral flow COLLATERAL FLOW: Collateral flow from Left to Right AORTIC ROOT: Angiographically normal COMPLICATIONS No Complications Physical Exam Const alert, oriented x3, no apparent distress and healthy appearing Orientation / Consciousness: awake HEENT normocephalic, head/scalp atraumatic and hearing grossly normal bilaterally Eyes PERRL, EOMs intact bilaterally and conjunctivae normal Neck full ROM, supple and no JVD Chest inspection of chest normal Resp clear to auscultation bilaterally Cardio regular rate, regular rhythm, S1 normal heart sound and S2 normal heart sound GI normal to inspection, nondistended, normoactive bowel sounds Extremity no pedal edema Peripheral Pulses: Yes radial pulses present right (No obvious bruit: No obvious hematoma) 2+ Skin no rashes or lesions noted Neuro oriented x3 and moves all extremities Psych mental status grossly normal Assessment & Plan Assessment/Plan (1) Non-ST elevated myocardial infarction: PLAN: The patient has findings concerning for an acute coronary syndrome with acute non-ST segment elevation IN. He has undergone evaluation with a diagnostic cardiac catheterization. The results are as noted. He has been recommended for continued medical therapy as well as tertiary care center evaluation for CABG. The patient has requested to be released home on medical management with an outpatient referral to [facility] in [place], [place] for consideration for CABG. (2) Benign essential HTN: PLAN: The patient has a history of hypertension. He will continue medical management and follow-up. (3) Diabetes mellitus: PLAN: The patient has a history of diabetes mellitus. He states that he believes its been under reasonably good control based upon his hemoglobin A1c levels. He will continue evaluation care per internal medicine. Addt'l Comments The patient's case has been discussed and reviewed with Dr. Abdullahi. This note was generated using a voice recognition system and there may be incorrect words, spelling or punctuation that were not noted when reviewing the office note prior to saving.
[2021-01-16 15:55] LABS: Bedside Glucose 155 mg/dL (70-110)
--- NOTE | 2021-01-16 16:07 | DS.PCM_ITS ---
Providers Date of Admission: 01/15/21 Primary Care Physician: Dr. Silvano Madden DO Reason For Visit: NSTEMI Diagnosis Discharge Diagnosis (1) Non-ST elevated myocardial infarction: Status: Acute Code(s): I21.4 - Non-ST elevation (NSTEMI) myocardial infarction (2) Benign essential HTN: Status: Acute Code(s): I10 - Essential (primary) hypertension (3) Diabetes mellitus: Status: Acute Code(s): E11.9 - Type 2 diabetes mellitus without complications Medications at Discharge Home Medications hydrochlorothiazide 25 mg tablet 25 mg PO DAILY 30 Days #30 05/25/17 insulin syringe-needle U-100 0.5 mL 31 gauge x /16 #50 ea 01/25/19 acetaminophen 325 mg capsule 325 mg PO ONCE PRN 01/19/20 bupropion HCl 150 mg tablet,12 hr sustained-release 150 mg PO DAILY 01/19/20 fluticasone propionate 50 mcg/actuation nasal spray,suspension 1 spray INTRA NASAL DAILY 08/03/20 insulin NPH isoph U-100 human 100 unit SUBCUT DAILY 09/19/20 loratadine [Claritin] 10 mg PO DAILY 09/19/20 omeprazole 20 mg PO DAILY 01/15/21 aspirin 81 mg PO BREAKFAST #90 tab 01/16/21 atorvastatin 80 mg PO QHS #30 tab 01/16/21 isosorbide mononitrate 30 mg PO DAILY #30 tab 01/16/21 lisinopril 2.5 mg PO DAILY #30 tab 01/16/21 metoprolol succinate 50 mg PO DAILY #30 tab 01/16/21 nitroglycerin 0.4 mg SUBLINGUAL Q5M PRN #30 tab 01/16/21 Hospital Course Summary of Care Provided Hospital Course: This 65-year-old patient woman was admitted with chest pressure for 15 to 20 minutes while she was working on the roof. The twelve-lead EKG shows sinus rhythm with frequent PVCs, LAD, QTC 479 ms. Small Q-wave in V1 and V2. Patient had previous EKG in June 2010 which showed no Q waves. First isolated troponin is high. Patient was admitted on PCU on telemetry. His diagnosis and management as follows 1. Non-STEMI with triple-vessel coronary artery disease: Patient WAS admitted in PCU. Initially patient wanted to go home and come back but was advised to get admitted for serious condition non-STEMI. Started on baby aspirin, IV heparin drip. Patient also had 1 dose of Plavix in ER. On low-dose metoprolol lisinopril and high intensity statin. 2D echo was done and reported EF 45%. Patient had cardiac cath reported anterior apical hypokinesis with triple-vessel disease proximal LAD 75%, mid LAD 50% OM1 long diffuse 90%, OM 2 proximal 50 to 75%, RCA mid and distal 75%, right PDA proximal occluded fills from left to right collaterals. Overall patient requires CABG surgery. Patient was advised to stay but he wants to follow cardiac surgeon as an outpatient within 1 week. Patient's insurance does not allow for [facility] but [facility]. Discussed with the chicken and fish butcher. Related to the cardiac surgeon and will send cardiac cath report CD and echo to the surgeon. Lipid profile shows LDL 87, TG 168. TSH normal. 2. Diabetes mellitus type 2, uncontrolled: Glucose is 300 mg/dL in BMP. Accu-Chek before meals and at bedtime cover with Humalog sliding scale. Patient wants to continue his NPH insulin. Glucose 155. 3. Lumbar spinal stenosis bilateral knee primary osteoarthritis: Hold meloxicam. Patient cannot take baby aspirin meloxicam and he has history of minor bruises once when he was taking both. 4. VTE prophylaxis: On IV heparin drip. Discharge medication reconciliation done. Discharge follow-up instructions completed. Discharge process discussed with the patient and all questions were answered to patient's satisfaction. Patient is discharged home on medications aspirin, Toprol-XL, low-dose lisinopril, isosorbide mononitrate and high intensity statin. Patient was advised to follow [facility] in 2 to 3 days. Follow-up PCP in 1 week. Follow-up chicken and fish butcher, Dr. Stephenson in 1 month. Total time spent, exact 35 minutes on discharge meds reconciliation, examination, coordination of care with nurses and ancillary staff, review of imaging and blood test and discussion with the patient on follow-up instructions Physical Exam Narrative General: Alert, Oriented x3, Cooperative HEENT: Atraumatic, PERRLA, EOMI, Normocephalic Oral: No Gingival or Mucosal Lesions/ Ulcerations Neck: Supple, No JVD, Negative Carotid Bruits Lungs: Air entry equal in bilateral lung bases. No crepitation/rhonchi Cardiovascular: Regular rate, Regular Rhythm, Normal S1, Normal S2, No murmurs Abdomen: Bowel Sounds Present, Soft, Non Tender, Non-Distended : No renal angle tenderness. No suprapubic tenderness. Extremities: No edema, Capillary Refill Less than 3 Seconds Skin: No rashes, No breakdown Musculoskeletal: No Tenderness to Palpation of Joints or Extremities Neurological: Cranial nerves II-XII grossly intact, DTR 2+/4 and Symmetrical, Neuro grossly intact Psych/Mental Status: Normal Affect, Appropriate. Weight / BMI Weight Weight: 229 lb 1 oz Body Mass Index (BMI) 30.2 ABG / Lab / Microbiology Data Result Diagrams: 01/16/21 07:30 01/16/21 07:30 Laboratory: Laboratory Results - last 24 hr 01/15/21 11:32: WBC 15.4 H, RBC 5.98, Hgb 17.9 H, Hct 52.8, MCV 88.3, MCH 29.9, MCHC 33.9, RDW Std Deviation 43.5, RDW Coeff of Power 13.5, Plt Count 327, MPV 11.2, Immature Gran % (Auto) 2.100 H, Neut % (Auto) 77.8 H, Lymph % (Auto) 10.1 L, [place] % (Auto) 8.2, Eos % (Auto) 1.2, Baso % (Auto) 0.6, Absolute Neuts (auto) 12.0 H, Absolute Lymphs (auto) 1.55, Nucleated RBC % 0 01/15/21 11:32: D-Dimer Quant (PE/DVT) 0.53 H* 01/15/21 11:32: Sodium 130 L, Potassium 4.1, Chloride 95 L, Carbon Dioxide 29.0, Anion Gap 6, BUN 35 H, Creatinine 1.46 H, Estim Creat Clear Calc 57.01, Est GFR (MDRD) Af Amer 62, Est GFR (MDRD) Non-Af 51 L, BUN/Creatinine Ratio 24.0 H, Glucose 300 H, Calcium 9.3, Troponin I High Sens 594 H* 01/15/21 11:32: B-Natriuretic Peptide 31.3 01/15/21 12:51: PT 12.9, INR 1.0, APTT 27.5 01/15/21 14:00: Magnesium 2.2, Troponin I High Sens 3832 H* 01/15/21 16:09: POC Glucose 259 H 01/15/21 17:08: Troponin I High Sens 5828 H* 01/15/21 19:20: APTT 77.3 H 01/15/21 21:02: POC Glucose 209 H 01/16/21 01:05: APTT 67.2 H 01/16/21 06:15: POC Glucose 85 01/16/21 07:30: WBC 11.7 H, RBC 5.61, Hgb 16.6 H, Hct 49.4, MCV 88.1, MCH 29.6, MCHC 33.6, RDW Std Deviation 43.9, RDW Coeff of Power 13.7, Plt Count 302, MPV 10.6, Immature Gran % (Auto) 1.500 H, Neut % (Auto) 63.3, Lymph % (Auto) 22.4, [place] % (Auto) 9.4, Eos % (Auto) 2.6, Baso % (Auto) 0.8, Absolute Neuts (auto) 7.4, Absolute Lymphs (auto) 2.63, Nucleated RBC % 0 01/16/21 07:30: Sodium 135 L, Potassium 3.7, Chloride 99, Carbon Dioxide 31.0, Anion Gap 5, BUN 21 H, Creatinine 1.09, Estim Creat Clear Calc 76.36, Est GFR (MDRD) Af Amer 87, Est GFR (MDRD) Non-Af 72, BUN/Creatinine Ratio 19.3, Glucose 102, Calcium 8.9, Triglycerides 168, Cholesterol 168, LDL Cholesterol 87, VLDL Cholesterol 34, HDL Cholesterol 47, TSH 1.82 01/16/21 07:30: APTT 26.4 01/16/21 10:46: POC Glucose 109 Microbiology: Microbiology 01/15/21 12:15 Nasal Secretion SARS-CoV-2 Antigen (Rapid) - Final Radiography Diagnostic Testing: Radiology Impression Chest X-Ray 01/15/21 12:11 IMPRESSION: No acute abnormality is seen. Electronically Signed: Soy Esquivel MD at 12:31 EDT , Service support , Meaningful Use Info Meaningful Use Diagnoses (Choose all that apply): AMI AMI/Post PCI/Angioplasty Aspirin given w/in 24hrs of arrival?: Yes ASA at discharge?: Yes Antiplatelet Therapy at Discharge:: Yes Statins at discharge?: Yes Angelito/ARB at discharge?: Yes Beta Joaquín at discharge?: Yes Done w/ Acute VT measure.: Yes Documented LVEF (%): 45 Discharge Plan Admission Admit Date/Time: 01/15/21 12:45 Primary Reason for Your Visit: Non-STEMI, triple-vessel coronary artery disease Attending Provider: Crispin Abdullahi Primary Care Provider: Silvano Madden Instructions Additional Instructions / Restrictions: Follow-up cardiothoracic surgeon [facility] in 2 to 3 days to schedule for CABG surgery. Special Projects Manager Dr. Stephenson will write the letter for the cardiac surgeon along with the CD of the cardiac cath. No exertional work prior to CABG. Discharge Orders/Prescriptions Prescriptions: New aspirin 81 mg Tablet,Delayed Release (Dr/Ec) 81 mg PO BREAKFAST Qty: 90 RF: 0 atorvastatin 80 mg Tablet 80 mg PO QHS Qty: 30 RF: 2 nitroglycerin 0.4 mg Tablet, Sublingual 0.4 mg sublingual Q5M PRN (Reason: Cardiac/Chest Pain) Qty: 30 RF: 0 lisinopril 2.5 mg Tablet 2.5 mg PO DAILY Qty: 30 RF: 0 isosorbide mononitrate 30 mg tablet extended release 24 hr 30 mg PO DAILY Qty: 30 RF: 0 Continued hydrochlorothiazide 25 mg tablet 25 mg PO DAILY 30 Days Qty: 30 RF: 0 (DME) insulin syringe-needle U-100 0.5 mL 31 gauge x 5/16 syringe See Rx Instructions .ROUTE .MEDSUPPLY Qty: 50 RF: 0 bupropion HCl [Wellbutrin SR] 150 mg tablet sustained-release 12 hr 150 mg PO DAILY RF: 0 acetaminophen [Tylenol] 325 mg capsule 325 mg PO ONCE PRN (Reason: Pain) RF: 0 fluticasone propionate 50 mcg/actuation spray,suspension 1 spray intranasal DAILY RF: 0 loratadine [Claritin] 10 mg Tablet 10 mg PO DAILY RF: 0 insulin NPH isoph U-100 human 100 unit/mL (3 mL) Insulin Pen 100 unit SUBCUT DAILY RF: 0 omeprazole 20 mg Capsule,Delayed Release(Dr/Ec) 20 mg PO DAILY RF: 0 metoprolol succinate 50 mg tablet extended release 24 hr 50 mg PO DAILY Qty: 30 RF: 0 Discontinued meloxicam 15 mg tablet 15 mg PO DAILY RF: 0 doxycycline hyclate 20 mg tablet 40 mg PO DAILY RF: 0 Referrals / Follow Up: Silvano Madden DO [Primary Care Provider] - In 1 Week Ry Stephenson MD [STAFF PHYSICIAN] - Within 1 Month (CAD) Disposition Disposition (needs filled in before D/C Order can be placed): Home, Self Care Charges/Coding Visit Charges Inpatient E&M: 99759 Disch Hosp
== END 2021-01-16 17:17 | disposition home or self-care (01) | DRG 282 ==
LOC: ED 12:55 → PCU 13:01
PROVIDERS: Admitting Provider Internal Medicine; Emergency Provider Emergency Medicine; PCP Family Medicine; Visit Provider Internal Medicine
DX: I21.4 Non-ST elevation (NSTEMI) myocardial infarction (principal); I10 Essential (primary) hypertension; I25.10 Atherosclerotic heart disease of native coronary artery without angina pectoris; M17.0 Bilateral primary osteoarthritis of knee; M48.061 Spinal stenosis, lumbar region without neurogenic claudication; E11.9 Type 2 diabetes mellitus without complications; Z66 Do not resuscitate; K21.9 Gastro-esophageal reflux disease without esophagitis; Z79.899 Other long term (current) drug therapy; Z82.49 Family history of ischemic heart disease and other diseases of the circulatory system; Z80.0 Family history of malignant neoplasm of digestive organs; Z87.09 Personal history of other diseases of the respiratory system; Z88.8 Allergy status to other drugs, medicaments and biological substances
CPT/HCPCS: 36415; 71045; 80048; 80061; 82962; 83735; 83880; 84443; 84484; 85025; 85379; 85610; 85730; 87426; 93005; 93306; 93458; 99152; 99153; 99251; 99285; J7030; J7040; Q9957; Q9967; A4216; C1769; C1894; G0463; J3490